=== PATIENT | female | born 1925 | race Hispanic/Latino ===

== ENCOUNTER 2017-02-06 15:43 | Observation (INO) | payer MEDICARE ==
[2017-02-06 15:43] VITALS: BMI 30.3
--- NOTE | 2017-02-06 16:37 | ED PDOC ---
- ECG O2 Sat by Pulse Oximetry: 93 Medical Decision Making Medical Decision Making: Patient signed out to Dr. Swann. Disposition - Disposition Forms: [email or web address] (Setswana)
--- NOTE | 2017-02-06 16:40 | ED PDOC ---
Upper Extremity Pain/Injury Time Seen by Provider: 02/06/17 16:17 Chief Complaint (Nursing): Upper Extremity Problem/Injury Chief Complaint (Provider): Right arm injury History Per: Patient History/Exam Limitations: no limitations Onset/Duration Of Symptoms: Hrs Current Symptoms Are (Timing): Still Present Additional Complaint(s): Patient is an 89 year old female with a past medical history of dementia and stroke who was brought to the emergency department by her family for right arm pain and a head injury status post fall from losing her balance at 2:15 pm today , presenting with a small abrasion to her forehead. Reports taking Plavix. Denies vomiting, focal weakness, or sensory deficits. PCP: Dr. Manuel Martins Past Medical History Reviewed: Historical Data, Nursing Documentation, Vital Signs Vital Signs: Last Vital Signs Temp 98.0 F 02/06/17 15:46 Pulse 73 02/06/17 15:46 Resp 20 02/06/17 15:46 BP 159/70 H 02/06/17 15:46 Pulse Ox 93 L 02/06/17 16:37 - Medical History PMH: Anxiety, COPD, Dementia, Fractures (pelvic fracture 2008), HTN, Hypercholesterolemia, TIA Denies: Chronic Kidney Disease - Surgical History Surgical History: Hernia Repair - Family History Family History: States: Unknown Family Hx - Living Arrangements Living Arrangements: With Family - Home Medications Home Medications: Ambulatory Orders Medication Instructions Recorded Amlodipine Besylate 10 mg PO HS 07/31/14 Clopidogrel [Plavix] 75 mg PO DAILY 07/31/14 Enalapril Maleate 10 mg PO Q12 07/31/14 Fluticasone/Salmeterol 250/50 2 puff IH Q12 07/31/14 [Advair Diskus 250/50] Quetiapine Fumarate [Seroquel] 25 mg PO BID 07/31/14 Rivastigmine 9.5 mg/24 hr [Exelon 9.4 mg TD HS 07/31/14 9.5 mg/24 hr Patch] Tiotropium [place] Inhaler 1 puff INH DAILY 07/31/14 [Spiriva Inhalation Handihaler Device] Pantoprazole [Protonix EC Tab] 20 mg PO DAILY #0 ect 08/16/14 cloNIDine [Catapres] 0.1 mg PO BID #0 tab 08/17/14 Mesalamine [Lialda] 1.2 mg PO 06/16/15 - Allergies Allergies/Adverse Reactions: Allergies Allergy/AdvReac Type Severity Reaction Status Date / Time No Known Allergies Allergy Verified 02/06/17 15:45 Review of Systems ROS Statement: Except As Marked, All Systems Reviewed And Found Negative Gastrointestinal: Negative for: Vomiting Musculoskeletal: Positive for: Arm Pain (right) Skin: Positive for: Other (small abrasion on forehead) Neurological: Negative for: Weakness (focal weakness or sensory deficits) Physical Exam - Reviewed Nursing Documentation Reviewed: Yes Vital Signs Reviewed: Yes - Physical Exam Appears: Positive for: Well, Non-toxic, No Acute Distress Head Exam: Positive for: NORMOCEPHALIC. Negative for: ATRAUMATIC Skin: Positive for: Normal Color, Warm, Dry Eye Exam: Positive for: Normal appearance, EOMI Neck: Positive for: Normal, Supple Cardiovascular/Chest: Positive for: Regular Rate, Rhythm, Chest Non Tender. Negative for: Murmur Respiratory: Positive for: Normal Breath Sounds. Negative for: Accessory Muscle Use, Respiratory Distress Gastrointestinal/Abdominal: Positive for: Soft. Negative for: Tenderness Extremity: Positive for: Normal ROM, Tenderness (humoral tenderness and mild elbow tenderness), Deformity (humoral), Swelling (+2 pitting edema bilateral lower extremities) Neurologic/Psych: Positive for: Alert, Oriented (x2), Other (symmetric strength on both upper extremities). Negative for: Motor/Sensory Deficits Comments: Small abrasion to central forehead - Laboratory Results Result Diagrams: 02/06/17 16:38 02/06/17 16:38 - ECG O2 Sat by Pulse Oximetry: 93 (RA) Pulse Ox Interpretation: Normal Medical Decision Making Medical Decision Making: Time: 16:23 Initial Impression: Traumatic injury status post fall Initial Plan: CT Scan Cervical Spine w/o contrast EKG Labs Toradol 15 mg IM Morphine 2 mg IV X-Ray Right Elbow X-Ray Right Forearm X-Ray Right Humerus X-Ray Pelvis X-Ray Right Shoulder Reevaluation Scribe Attestation: Documented by Veronica Mora, acting as a scribe for Patti Swann MD. Provider Scribe Attestation: All medical record entries made by the Scribe were at my direction and personally dictated by me. I have reviewed the chart and agree that the record accurately reflects my personal performance of the history, physical exam, medical decision making, and the department course for this patient. I have also personally directed, reviewed, and agree with the discharge instructions and disposition. Disposition - Disposition Forms: [employer] (Slovak)
[2017-02-06 16:42] LABS: BASO # 0.1 K/uL (0.0-0.2); EOS # 0.1 K/uL (0.0-0.7); EOS % 0.5 % (0.0-4.0); HEMOGLOBIN 11.3 g/dL (12.0-16.0); LYMPH # 1.7 K/uL (1.0-4.3); MEAN CORPUSCULAR HEMOGLOBIN 29.1 pg (27.0-31.0); MEAN CORPUSCULAR HGB CONC 33.4 g/dL (33.0-37.0); MEAN PLATELET VOLUME 7.1 fl (7.2-11.7); MONO # 0.6 K/uL (0.0-0.8); NEUT # 9.6 K/uL (1.8-7.0); NEUT % 79.5 % (50.0-75.0); RBC 3.9 Mil/uL (3.80-5.20); RED CELL DISTRIBUTION WIDTH 14.4 % (11.5-14.5); WHITE BLOOD COUNT 12.1 K/uL (4.8-10.8)
--- NOTE | 2017-02-06 16:45 | ED PDOC ---
- ECG O2 Sat by Pulse Oximetry: 93 Medical Decision Making Medical Decision Makin:44 Patient is signed out from Dr. Gary to me. Disposition - Disposition Forms: [employer] (Ukrainian)
[2017-02-06 16:51] LABS: BLOOD UREA NITROGEN 13 mg/dl (7-17); CALCIUM 9.3 mg/dL (8.4-10.2); GFR AFRICAN-AMERICAN > 60; GFR NON-AFRICAN AMERICAN > 60
--- NOTE | 2017-02-06 17:02 | ED PDOC ---
- Laboratory Results Result Diagrams: 02/06/17 16:38 02/06/17 16:38 - ECG O2 Sat by Pulse Oximetry: 93 (RA) Pulse Ox Interpretation: Normal Medical Decision Making Medical Decision Makin:50 Patient signed out to me from Dr. Ranjana Gary. Pending X-rays and C-spine CT scan. Pain medication initiated with Toradol. 17:30 C-spine CT scan pending. The following X-rays were reviewed and findings noted: Right forearm: no acute findings Right elbow: distal humerus fracture Right humerus: distal humerus fracture Right shoulder: no acute findings Pelvis: no acute findings 19:[address] scan reviewed and findings noted: LIMITATIONS: Moderate streak/motion artifact. BRAIN: Stable appearance of multiple areas of encephalomalacia in the right parietal and posterior temporal lobes, most likely secondary to a chronic infarct. Focal areas of low density are seen in the left basal ganglia, most compatible with old/chronic lacunar infarcts. Stable tiny calcification in the left parietal lobe. Diffuse, marked, age-related cortical atrophy and ventriculomegaly. No definite acute abnormality identified, allowing for motion artifact. No definite acute hemorrhage seen within the brain. No acute extra-axial fluid collections visualized. No evidence of significant mass effect within the brain. VENTRICLES: See above. BONES/JOINTS: No acute fractures or other acute bony abnormality noted. SOFT TISSUES: Soft tissue swelling in the right frontal scalp. SINUSES: Visualized paranasal sinuses appear clear. MASTOID AIR CELLS: Mastoid air cells appear clear. IMPRESSION: - No definite acute intracranial injury or fractures. Exam is limited by motion artifact, however. - Areas of encephalomalacia in the right cerebral hemisphere, most likely related to an old/chronic infarct. - See above for remaining findings. 19:[address] C-[address] scan reviewed and findings noted: LIMITATIONS: Mild streak/motion artifact. VERTEBRAE: Vertebrae appear demineralized. No acute cervical spine fractures visualized. No significant vertebral subluxation seen on the sagittal reformatted images. Normal alignment of the facet joints. DISCS/SPINAL CANAL/NEURAL FORAMINA: Marked, multilevel degenerative disc disease. Marked, multilevel facet joint degenerative changes. Degenerative changes at the atlantoaxial joint. SOFT TISSUES: No acute abnormality of the visualized soft tissues is seen. LUNG APICES: Emphysematous changes in the lung apices. No pneumothorax is seen. IMPRESSION: - No acute cervical spine fractures identified. - See above for remaining findings. Discussed with Dr Portillo who recommends posterior splint and admit for OR. Scribe Attestation: Documented by Veronica Mora, acting as a scribe for Patti wSann MD. Provider Scribe Attestation: All medical record entries made by the Scribe were at my direction and personally dictated by me. I have reviewed the chart and agree that the record accurately reflects my personal performance of the history, physical exam, medical decision making, and the department course for this patient. I have also personally directed, reviewed, and agree with the discharge instructions and disposition. Disposition Discussed With DrLorna: Marjan Milton Doctor Will See Patient In The: ED Counseled Patient/Family Regarding: Studies Performed, Diagnosis - Clinical Impression Clinical Impression: Head injury, Fracture of humerus, right, closed - POA Present On Arrival: None - Disposition Disposition: Admitted as In-Patient Disposition Time: 19:30 Condition: FAIR Forms: [employer] (Spanish)
[2017-02-06 18:35] LABS: INR 1.1 (0.9-1.2); PARTIAL THROMBOPLASTIN TIME 32.6 Seconds (25.6-37.1); PROTHROMBIN TIME 10.9 Seconds (9.8-13.1)
--- NOTE | 2017-02-06 19:22 | CT ---
EXAM: CT Head Without Intravenous Contrast EXAM DATE/TIME: 02/06/2017 4:23 PM CLINICAL HISTORY: 89 years old, female; Injury or trauma; Fall; Initial encounter; Fracture, traumatic; Additional info: R/O ich TECHNIQUE: Axial computed tomography images of the head/brain without intravenous contrast. All CT scans at this facility use one or more dose reduction techniques, viz.: automated exposure control; ma/kV adjustment per patient size (including targeted exams where dose is matched to indication; i.e. head); or iterative reconstruction technique. Coronal and sagittal reformatted images were created and reviewed. COMPARISON: Prior head CT of 12/04/2014 3:16:58 PM FINDINGS: LIMITATIONS: Moderate streak/motion artifact. BRAIN: Stable appearance of multiple areas of encephalomalacia in the right parietal and posterior temporal lobes, most likely secondary to a chronic infarct. Focal areas of low density are seen in the left basal ganglia, most compatible with old/chronic lacunar infarcts. Stable tiny calcification in the left parietal lobe. Diffuse, marked, age-related cortical atrophy and ventriculomegaly. No definite acute abnormality identified, allowing for motion artifact. No definite acute hemorrhage seen within the brain. No acute extra-axial fluid collections visualized. No evidence of significant mass effect within the brain. VENTRICLES: See above. BONES/JOINTS: No acute fractures or other acute bony abnormality noted. SOFT TISSUES: Soft tissue swelling in the right frontal scalp. SINUSES: Visualized paranasal sinuses appear clear. MASTOID AIR CELLS: Mastoid air cells appear clear. IMPRESSION: - No definite acute intracranial injury or fractures. Exam is limited by motion artifact, however. - Areas of encephalomalacia in the right cerebral hemisphere, most likely related to an old/chronic infarct. - See above for remaining findings.
--- NOTE | 2017-02-06 19:32 | CT ---
EXAM: CT Cervical Spine Without Intravenous Contrast EXAM DATE/TIME: 02/06/2017 4:23 PM CLINICAL HISTORY: 89 years old, female; Pain; Neck pain; Additional info: Trauma R/O FX TECHNIQUE: Axial computed tomography images of the cervical spine without intravenous contrast. All CT scans at this facility use one or more dose reduction techniques, viz.: automated exposure control; ma/kV adjustment per patient size (including targeted exams where dose is matched to indication; i.e. head); or iterative reconstruction technique. Coronal and sagittal reformatted images were created and reviewed. COMPARISON: No relevant prior studies available. FINDINGS: LIMITATIONS: Mild streak/motion artifact. VERTEBRAE: Vertebrae appear demineralized. No acute cervical spine fractures visualized. No significant vertebral subluxation seen on the sagittal reformatted images. Normal alignment of the facet joints. DISCS/SPINAL CANAL/NEURAL FORAMINA: Marked, multilevel degenerative disc disease. Marked, multilevel facet joint degenerative changes. Degenerative changes at the atlantoaxial joint. SOFT TISSUES: No acute abnormality of the visualized soft tissues is seen. LUNG APICES: Emphysematous changes in the lung apices. No pneumothorax is seen. IMPRESSION: - No acute cervical spine fractures identified. - See above for remaining findings.
--- NOTE | 2017-02-06 20:18 | CP.PCM.HP ---
History of Present Illness - History of Present Illness History of Present Illness: CC: Fall, R humerus fracture (History per family as patient has dementia and cannot provide) HPI: This is an 89 y/o female with MHx significant for dementia, HTN, COPD, UC and prior CVA (on Plavix) who is brought in after a fall at home. Per family, she was coming into the house with the daughter. Daughter turned around to get her her walker, and in the meantime, patient had a mechanical fall in the entryway. She did hit her head. There was no LOC. patient got up, was mentating normally. Did c/o arm pain on R. Patient was brought to the hospital soon after. Currently patient only c/o R arm pain. ROS: patient unable to cooperate with ROS MHx: HTN, COPD, Dementia, UC and past CVA SHx: None Allergies: None Medications: As per med rec Family Hx: Patient unable to provide Social Hx: Lives with family, no EtOH; prior history of tobacco Surrogate Dec Mkr: Daughter; accompanying patient Present on Admission - Present on Admission Any Indicators Present on Admission: No Past Patient History - Past Medical History & Family History Past Medical History?: Yes - Past Social History Smoking Status: Former Smoker - CARDIAC Hx Hypercholesterolemia: Yes Hx Hypertension: Yes - PULMONARY Hx Chronic Obstructive Pulmonary Disease (COPD): Yes - NEUROLOGICAL Hx Dementia: Yes Hx Transient Ischemic Attacks (TIA): Yes - HEENT Hx Macular Degeneration: Yes (last eye doctor visit 6 years ago) - RENAL Hx Chronic Kidney Disease: No - ENDOCRINE/METABOLIC Hx Endocrine Disorders: No - HEMATOLOGICAL/ONCOLOGICAL Hx Blood Disorders: No - INTEGUMENTARY Hx Dermatological Problems: No - MUSCULOSKELETAL/RHEUMATOLOGICAL Hx Fractures: Yes (pelvic fracture 2008) - GASTROINTESTINAL Hx Colitis: Yes - GENITOURINARY/GYNECOLOGICAL Hx Genitourinary Disorders: No - PSYCHIATRIC Hx Anxiety: Yes Hx Substance Use: No - SURGICAL HISTORY Hx Surgeries: Yes Other/Comment: Hernia repair 50 years ago - ANESTHESIA Hx Anesthesia: Yes Hx Anesthesia Reactions: No Hx Malignant Hyperthermia: No Meds Allergies/Adverse Reactions: Allergies Allergy/AdvReac Type Severity Reaction Status Date / Time No Known Allergies Allergy Verified 02/06/17 15:45 Physical Exam - Constitutional Appears: Confused - Head Exam Head Exam: ATRAUMATIC, NORMOCEPHALIC Additional comments: Some abrasions noted on forehead - Eye Exam Eye Exam: EOMI, PERRL - ENT Exam ENT Exam: Mucous Membranes Moist - Neck Exam Neck exam: Positive for: Full Rom - Respiratory Exam Respiratory Exam: Clear to Auscultation Bilateral, NORMAL BREATHING PATTERN - Cardiovascular Exam Cardiovascular Exam: REGULAR RHYTHM, +S1, +S2 - GI/Abdominal Exam GI & Abdominal Exam: Hyperactive Bowel Sounds, Soft - Extremities Exam Additional comments: RUE in sling; L knee with abrasions - Neurological Exam Neurological exam: Alert Additional comments: awake but confused - Skin Skin Exam: Dry, Warm Results - Vital Signs Recent Vital Signs: Last Vital Signs Temp 98.0 F 02/06/17 15:46 Pulse 73 02/06/17 15:46 Resp 20 02/06/17 15:46 BP 159/70 H 02/06/17 15:46 Pulse Ox 93 L 02/06/17 20:01 - Labs Result Diagrams: 02/06/17 16:38 02/06/17 16:38 Labs: Laboratory Results - last 24 hr 02/06/17 02/06/17 02/06/17 16:38 16:38 16:38 WBC 12.1 H D RBC 3.90 Hgb 11.3 L Hct 33.9 L MCV 87.0 MCH 29.1 MCHC 33.4 RDW 14.4 Plt Count 279 MPV 7.1 L Neut % (Auto) 79.5 H Lymph % (Auto) 14.0 L [place] % (Auto) 5.0 Eos % (Auto) 0.5 Baso % (Auto) 1.0 Neut # 9.6 H Lymph # 1.7 [place] # 0.6 Eos # 0.1 Baso # 0.1 PT 10.9 INR 1.1 APTT 32.6 Sodium 122 L Potassium 4.7 Chloride 90 L Carbon Dioxide 21 L Anion Gap 16 BUN 13 Creatinine 0.7 Est GFR ( Amer) > 60 Est GFR (Non-Af Amer) > 60 Random Glucose 127 H Calcium 9.3 - EKG Data EKG comments: pending - Imaging and Cardiology CT scan - chest Status: Pending (R shoulder shows hum fx) Assessment & Plan (1) Fracture of humerus, right, closed Assessment and Plan: 89 y/o female presenting with fall/head injury in setting of Plavix and R humerus fx. 1) Fall/head injury -- CT shows no bleed -Hold Plavix -Monitor closely 2) R humerus fx 2/2 fall -Pain mgmt as per scale -Ortho consulted -CXR, EKG pre-op in case patient needs OR -NPO after MN in case OR -Cardiology (Lakshmi) consulted for clearance 3) HTN -- stable, cont home medications 4) DVT PPx -- SCDs only for now Status: Acute (2) Head injury Status: Acute (3) DVT prophylaxis Status: Acute (4) COPD (chronic obstructive pulmonary disease) Status: Chronic Priority: Medium (5) Hypertension Status: Chronic Priority: Medium
[2017-02-06] MEDS: Fluticasone-Salmeterol 250-50mcg Diskus IH SCH (23:55)
[2017-02-07] MEDS ORDERED: Sodium Chloride 0.9% 1,000 ML IV SCH (00:15)
[2017-02-07] MEDS: Oxycodone/Acetaminophen 5/325 mg Tab PO PRN ×2 (00:37→16:02)
[2017-02-07 08:02] LABS: HEMOGLOBIN 10.9 g/dL (12.0-16.0); MEAN CELL VOLUME 87.6 fl (81.0-99.0); MEAN CORPUSCULAR HEMOGLOBIN 29.3 pg (27.0-31.0); MEAN CORPUSCULAR HGB CONC 33.5 g/dL (33.0-37.0); RBC 3.72 Mil/uL (3.80-5.20); RED CELL DISTRIBUTION WIDTH 14.3 % (11.5-14.5); WHITE BLOOD COUNT 11.2 K/uL (4.8-10.8)
[2017-02-07 08:18] LABS: BLOOD UREA NITROGEN 12 mg/dl (7-17); CALCIUM 9.1 mg/dL (8.4-10.2); GFR AFRICAN-AMERICAN > 60; GFR NON-AFRICAN AMERICAN > 60
[2017-02-07 08:41] VITALS: RESP 20
[2017-02-07] MEDS ORDERED: Pantoprazole 20 mg EC Tab PO SCH (09:00)
[2017-02-07] MEDS ORDERED: Tiotropium 18 mcg Cap For Inhalation INH SCH (09:00)
--- NOTE | 2017-02-07 09:06 | CP.PCM.DIS ---
Provider - Provider Date of Admission: 02/06/17 19:49 Attending physician: Manuel Estrada MD Time Spent in preparation of Discharge (in minutes): 30 Hospital Course - Lab Results Lab Results: Most Recent Lab Values WBC 11.2 K/uL (4.8-10.8) H 02/07/17 05:30 RBC 3.72 Mil/uL (3.80-5.20) L 02/07/17 05:30 Hgb 10.9 g/dL (12.0-16.0) L 02/07/17 05:30 Hct 32.6 % (34.0-47.0) L 02/07/17 05:30 MCV 87.6 fl (81.0-99.0) 02/07/17 05:30 MCH 29.3 pg (27.0-31.0) 02/07/17 05:30 MCHC 33.5 g/dL (33.0-37.0) 02/07/17 05:30 RDW 14.3 % (11.5-14.5) 02/07/17 05:30 Plt Count 284 K/uL (130-400) 02/07/17 05:30 MPV 7.1 fl (7.2-11.7) L 02/06/17 16:38 Neut % (Auto) 79.5 % (50.0-75.0) H 02/06/17 16:38 Lymph % (Auto) 14.0 % (20.0-40.0) L 02/06/17 16:38 [place] % (Auto) 5.0 % (0.0-10.0) 02/06/17 16:38 Eos % (Auto) 0.5 % (0.0-4.0) 02/06/17 16:38 Baso % (Auto) 1.0 % (0.0-2.0) 02/06/17 16:38 Neut # 9.6 K/uL (1.8-7.0) H 02/06/17 16:38 Lymph # 1.7 K/uL (1.0-4.3) 02/06/17 16:38 [place] # 0.6 K/uL (0.0-0.8) 02/06/17 16:38 Eos # 0.1 K/uL (0.0-0.7) 02/06/17 16:38 Baso # 0.1 K/uL (0.0-0.2) 02/06/17 16:38 PT 10.9 Seconds (9.8-13.1) 02/06/17 16:38 INR 1.1 (0.9-1.2) 02/06/17 16:38 APTT 32.6 Seconds (25.6-37.1) 02/06/17 16:38 Sodium 124 mmol/l (132-148) L 02/07/17 05:30 Potassium 4.6 MMOL/L (3.6-5.0) 02/07/17 05:30 Chloride 91 mmol/L (98-107) L 02/07/17 05:30 Carbon Dioxide 23 mmol/L (22-30) 02/07/17 05:30 Anion Gap 15 (10-20) 02/07/17 05:30 BUN 12 mg/dl (7-17) 02/07/17 05:30 Creatinine 0.6 mg/dL (0.7-1.2) L 02/07/17 05:30 Est GFR ( Amer) > 60 02/07/17 05:30 Est GFR (Non-Af Amer) > 60 02/07/17 05:30 Random Glucose 110 mg/dL (65-105) H 02/07/17 05:30 Calcium 9.1 mg/dL (8.4-10.2) 02/07/17 05:30 - Hospital Course Hospital Course: HPI: This is an 89 y/o female with MHx significant for dementia, HTN, COPD, UC and prior CVA (on Plavix) who is brought in after a fall at home. Per family, she was coming into the house with the daughter. Daughter turned around to get her her walker, and in the meantime, patient had a mechanical fall in the entryway. She did hit her head. There was no LOC. patient got up, was mentating normally. Did c/o arm pain on R. Patient was brought to the hospital soon after. Currently patient only c/o R arm pain. DISCUSSED WITH DR. PORTILLO THIS MORNING, OCTOBER DISCHARGE PATIENT HOME WITH OUTPATIENT FOLLOW UP. STABLE FOR DISCHARGE HOME WITH ALSO FOLLOW UP PCP. DISCUSSED WITH DAUGHTER, PRIMARY SUPERVISOR DOCK. Assessment & Plan (1) Fracture of humerus, right, closed Assessment and Plan: 89 y/o female presenting with fall/head injury in setting of Plavix and R humerus fx. 1) Fall/head injury -- CT shows no bleed -Hold Plavix -Monitor closely 2) R humerus fx 2/2 fall -Pain mgmt as per scale -CT scan - chest (R shoulder shows hum fx) -Ortho consulted Lindsey - DISCUSSED WITH DR. PORTILLO, MAY DISCHARGE PATIENT HOME WITH OUTPATIENT FOLLOW UP IN THE OFFICE. -CXR, EKG pre-op in case patient needs OR -NPO after MN in case OR -Cardiology (Lakshmi) - DISCUSSED WITH DR. ESTRADA 3) HTN -- stable, cont home medications 4) DVT PPx -- SCDs only for now Status: Acute (2) Head injury Status: Acute (3) DVT prophylaxis Status: Acute (4) COPD (chronic obstructive pulmonary disease) Status: Chronic Priority: Medium (5) Hypertension Status: Chronic Priority: Medium Discharge Exam - Head Exam Head Exam: ATRAUMATIC, NORMOCEPHALIC Additional comments: GEN: WDWN, ALERT, COOPERATIVE, BASELINE CONFUSION HEENT: NCAT, PERRL, EOMI HEART: +S1+S2, RRR NO MRG LUNG: CTAB, NO WRR ABD: SOFT BSX4 NT ND NO HSM NO MASS EXT: WARM, WELL PERFUSED. LIMITED ROM R SHOULDER IN SLING NEURO: NV INTACT ALL 4 EXTREMIITES, WARM, WELL PERFUSED SKIN: WARM DRY PSYCH: NORMAL MOOD NORMAL AFFECT Discharge Plan - Discharge Medications Prescriptions: amLODIPine [Norvasc] 10 mg PO HS #30 tab cloNIDine [Catapres] 0.1 mg PO BID #60 tab Clopidogrel [Plavix] 75 mg PO DAILY #30 tab Enalapril Maleate [Vasotec] 20 mg PO BID #60 tab Fluticasone/Salmeterol 250/50 [Advair Diskus 250/50] 2 puff IH Q12 #14 puff Mesalamine [Lialda] 1.2 mg PO BID #60 tab Mesalamine [Lialda] 1.2 mg PO BID #60 tab Pantoprazole [Protonix EC Tab] 20 mg PO DAILY #30 ect QUEtiapine [Seroquel] 25 mg PO DAILY #30 tab Quetiapine Fumarate [Seroquel] 50 mg PO HS #30 tab Rivastigmine 9.5 mg/24 hr [Exelon 9.5 mg/24 hr Patch] 9.4 mg TD HS #30 tdm Tiotropium [place] Inhaler [Spiriva Inhalation Handihaler Device] 1 puff INH DAILY #1 inh - Follow Up Plan Condition: FAIR Disposition: HOME/ ROUTINE Additional Instructions: FOLLOW UP WITH ORTHO DR. PORTILLO FOLLOW UP WITH PCP RETURN TO ER IF CONDITION WORSENS Referrals: Nestor Portillo MD [Staff Provider] -
[2017-02-07] MEDS: Fluticasone-Salmeterol 250-50mcg Diskus IH SCH ×2 (09:23→09:45)
--- NOTE | 2017-02-07 10:13 | CARD ---
APPROVED REPORT EKG Measurement Heart [id number] <Conclusion> Sinus rhythm with 1st degree AV block Left axis deviation Right bundle branch block Abnormal ECG
[2017-02-07 12:00] LABS: URINE BACTERIA OCC (<OCC); URINE BILIRUBIN NEGATIVE (NEGATIVE); URINE BLOOD SMALL (NEGATIVE); URINE CLARITY TURBID (Clear); URINE COLOR YELLOW (YELLOW); URINE GLUCOSE (UA) NEG (Normal); URINE LEUKOCYTE ESTERASE LARGE Leu/uL (Negative); URINE NITRATE NEGATIVE (NEGATIVE); URINE PROTEIN 30 mg/dL (NEGATIVE); URINE UROBILINOGEN 0.2-1.0 mg/dL (0.2-1.0); WBC CLUMPS MOD /hpf
[2017-02-07 12:01] LABS: SQUAMOUS EPITHIAL 5 /hpf (0-5)
[2017-02-07 12:07] VITALS: BP 138/72; PULSE 72; TEMP 98.2
[2017-02-07] MEDS ORDERED: Tmp-Smz 800 mg-160 mg DS Tab PO SCH (14:03)
[2017-02-07 16:39] VITALS: O2SAT 90
--- NOTE | 2017-02-07 16:41 | RAD ---
PROCEDURE: Radiographs of the right humerus. HISTORY: fall trauma COMPARISON: Comparison made with concurrent radiographs right elbow. FINDINGS: BONES: There is a displaced diagonal/ oblique fracture distal 1/3 of the right humerus. Degenerative changes of the right elbow with heterotopic bone changes. . . Questionable fracture of the radial head versus. Consider followup CT scan of the right elbow for further evaluation SOFT TISSUES: Probable soft tissue swelling surrounding the fracture site OTHER FINDINGS: None. IMPRESSION: Diagonal/oblique displaced fracture distal 1/3 of the right humerus. . Questionable fracture of the right humeral head. Degenerative osteoarthritis right elbow. . Consider followup CT scan of the right elbow. Note that this report was placed in PA review folder for followup
--- NOTE | 2017-02-07 16:44 | RAD ---
PROCEDURE: Pelvis dated 02/06/2017 HISTORY: Status post fall with trauma COMPARISON: Comparison made with radiographs of the right hip 06/01/[address] scan of the abdomen and pelvis dated 12/04/2014 which image the pelvis and both hips in 3 planes. FINDINGS: The current study is quite limited due to large pannus which partially obscures fine soft tissue and bone detail. No definitive evidence of acute displaced fracture nor dislocation. Both femoral heads are appropriately located within the respective acetabula. Degenerative osteoarthritis both hip joints. If symptoms persist or occult fracture suspected clinically recommend followup CT scan of the pelvis and both hips. Vascular calcifications are present. Impression: Limited study due to large body habitus. No definitive evidence of acute displaced fracture nor dislocation however if symptoms persist or occult fracture suspected clinically recommend followup CT scan of the pelvis and both hips. Degenerative osteoarthritis both hip joints. BONES: Pelvic Bones: Unremarkable. Hips: Grossly unremarkable. JOINTS: Sacroiliac Joints: Unremarkable. Pubic Symphysis: Unremarkable. OTHER FINDINGS: None. IMPRESSION: Unremarkable radiographs of the pelvis.
--- NOTE | 2017-02-07 16:47 | RAD ---
PROCEDURE: Radiographs of the Right Shoulder HISTORY: fall trauma COMPARISON: Correlation made with concurrent radiographs of the right humerus. . FINDINGS: BONES: Diagonal fracture distal 1/3 of the right humerus is less well seen compared to dedicated radiographs of the right humerus. Please refer that study and corresponding report for additional details JOINTS: Mild degenerative changes of the right acromioclavicular and glenohumeral joints. SOFT TISSUES: Probable soft tissue swelling surrounding the fracture site OTHER FINDINGS: None. IMPRESSION: Diagonal/oblique fracture distal 1/3 of the right humerus.
--- NOTE | 2017-02-07 16:50 | RAD ---
PROCEDURE: Right elbow dated 02/06/2017. HISTORY: Status post fall with trauma COMPARISON: No comparison made with concurrent radiographs of the right humerus and right forearm FINDINGS: BONES: Re- demonstrated is a displaced diagonal/oblique fracture traversing the distal right humerus. Questionable fracture of the radial head versus degenerative osteoarthritis. . Impression: The displaced diagonal/ oblique fracture traversing distal 1/3 right humerus. Degenerative changes of the right elbow. Fracture of the right radial head cannot be excluded. Consider followup CT scan for further evaluation. Note that this report was placed in PA review folder for followup.
--- NOTE | 2017-02-07 17:08 | RAD ---
PROCEDURE: Radiographs of the Right Forearm HISTORY: fall trauma COMPARISON: Comparison made with concurrent radiographs of the right humerus and right elbow. TECHNIQUE: Frontal and lateral views obtained. FINDINGS: BONES: The current study re- demonstrates displaced diagonal fracture traversing distal 1/3 right humerus. JOINT SPACES: Degenerative changes right elbow with heterotopic bone changes. The possibility of a fracture of the head of the right radius not excluded. Consider followup CT scan of the elbow could be performed if further evaluation is required based on clinical correlation. OTHER FINDINGS: None. IMPRESSION: Displaced diagonal/oblique fracture distal 1/3 of the right humerus. Degenerative changes right elbow. Fracture right radial head not excluded. Followup CT scan could be performed if further evaluation is required. Note that this report was placed in PA review folder followup
--- NOTE | 2017-02-07 18:07 | RAD ---
PROCEDURE: CHEST RADIOGRAPH, 1 VIEW HISTORY: Pre-op COMPARISON: Comparison made with chest radiograph 12/04/2014. FINDINGS: LUNGS: Patchy bibasilar opacities may represent areas of atelectasis likely due to poor inspiration. Developing lower lobe infiltrates could be excluded followup radiographs. The interstitial markings are also increased and coarsened which could be due to poor inspiration however underlying sequela of reactive/inflammatory airway disease or possibility of mild chronic compensated pulmonary edema/CHF not excluded. PLEURA: No evidence of pneumothorax. Biapical pleural thickening left greater than right CARDIOVASCULAR: Heart is enlarged. Aorta is ectatic and uncoiled. Calcification of the aortic knob. OSSEOUS STRUCTURES: Multilevel degenerative spondylosis of the thoracic spine. High-riding left humeral head possibly due to chronic rotator cuff injury. Degenerative changes both shoulder girdles VISUALIZED UPPER ABDOMEN: Normal. OTHER FINDINGS: None. IMPRESSION: Patchy bibasilar opacities may represent areas of atelectasis likely due to poor inspiration. Developing lower lobe infiltrates could be excluded followup radiographs. The interstitial markings are also increased and coarsened which could be due to poor inspiration however underlying sequela of reactive/inflammatory airway disease or possibility of mild chronic compensated pulmonary edema/CHF not excluded.
== END 2017-02-07 16:30 | disposition home or self-care (01) ==
LOC: H.ER 15:43 → H.ERHOLD 19:49 → INTOOBSV 19:49 → H.TEL 23:53
PROVIDERS: ADMIT Internal Medicine Cardiovascular Disease; ATTEND Internal Medicine Cardiovascular Disease
DX: S42.401A Unspecified fracture of lower end of right humerus, initial encounter for closed fracture (principal); W18.30XA Fall on same level, unspecified, initial encounter; Y93.9 Activity, unspecified; Y92.008 Other place in unspecified non-institutional (private) residence as the place of occurrence of the external cause; S00.81XA Abrasion of other part of head, initial encounter; I10 Essential (primary) hypertension; E78.00 Pure hypercholesterolemia, unspecified; Z86.73 Personal history of transient ischemic attack (TIA), and cerebral infarction without residual deficits; F03.90 Unspecified dementia, unspecified severity, without behavioral disturbance, psychotic disturbance, mood disturbance, and anxiety; J44.9 Chronic obstructive pulmonary disease, unspecified; F41.9 Anxiety disorder, unspecified
CPT/HCPCS: 36415; 70450; 71010; 72125; 72170; 73030; 73060; 73080; 73090; 80048; 81003; 85025; 85027; 85610; 85730; 93005; 96372; 96374; 99285; G0378; J1885; J2270; J7040

== ENCOUNTER 2017-02-11 15:30 | Inpatient (IN) | payer MEDICARE ==
[2017-02-11 15:31] VITALS: BMI 30.3
[2017-02-11 17:06] LABS: BASO # 0.1 K/uL (0.0-0.2); EOS % 0.5 % (0.0-4.0); LYMPH # 1.5 K/uL (1.0-4.3); MEAN CELL VOLUME 87.2 fl (81.0-99.0); MEAN CORPUSCULAR HEMOGLOBIN 29.3 pg (27.0-31.0); MEAN CORPUSCULAR HGB CONC 33.6 g/dL (33.0-37.0); MEAN PLATELET VOLUME 7.4 fl (7.2-11.7); MONO # 0.4 K/uL (0.0-0.8); MONO % 4.9 % (0.0-10.0); NEUT # 6.2 K/uL (1.8-7.0); NEUT % 75.6 % (50.0-75.0); RED CELL DISTRIBUTION WIDTH 14.2 % (11.5-14.5); WHITE BLOOD COUNT 8.1 K/uL (4.8-10.8)
[2017-02-11 17:17] LABS: CALCIUM 8.3 mg/dL (8.4-10.2); POTASSIUM 4.9 MMOL/L (3.6-5.0)
--- NOTE | 2017-02-11 17:20 | RAD ---
PROCEDURE: CHEST RADIOGRAPH, 1 VIEW HISTORY: Cough. Congestion. COMPARISON: Comparison chest dated 02/06/2027 FINDINGS: LUNGS: Poor inspiration with low lung volumes, crowded bronchovascular markings and mild bibasilar atelectasis ; underlying infiltrates not excluded. Mild biapical pleural thickening PLEURA: As above. No pneumothorax or pleural fluid seen. CARDIOVASCULAR: Heart appears enlarged. Aorta is ectatic and uncoiled with calcification of the aortic knob. OSSEOUS STRUCTURES: No significant abnormalities. VISUALIZED UPPER ABDOMEN: Degenerative osteoarthritis both shoulder girdles. OTHER FINDINGS: None. IMPRESSION: Poor inspiration with low lung volumes, crowded bronchovascular markings and mild bibasilar atelectasis ; underlying infiltrates not excluded.
[2017-02-11] MEDS: Sodium Chloride 0.9% 1,000 ML IV SCH (17:26)
[2017-02-11 17:29] LABS: TROPONIN I 0.021 ng/mL (0.00-0.120)
--- NOTE | 2017-02-11 19:06 | ED PDOC ---
HPI: General Adult Time Seen by Provider: 02/11/17 15:45 Chief Complaint (Nursing): Weakness/Neurological Deficit Chief Complaint (Provider): Weakness History Per: Family History/Exam Limitations: no limitations Onset/Duration Of Symptoms: Days (x 5) Current Symptoms Are (Timing): Still Present Additional Complaint(s): Lauren is an 89 y/o female who presents to the ED for complaints of generalized weakness for the past 4 days. Admitted last week for right arm fracture and discharged 4 days ago. Splint was placed on right arm and patient was seen by Orthopedist Dr. Portillo and given follow up appointment. Since discharge, she is unable to get up and walk due to weakness. Family reports decreased appetite. Denies fever. Patient has history of dementia and is a poor historian. PMD: Dr. Martins Past Medical History Reviewed: Historical Data, Nursing Documentation, Vital Signs Vital Signs: Last Vital Signs Temp 97.6 F 02/12/17 12:00 Pulse 92 H 02/12/17 12:00 Resp 20 02/12/17 12:00 BP 164/78 H 02/12/17 12:00 Pulse Ox 93 L 02/12/17 12:00 - Medical History PMH: Anxiety, Arthritis, CAD, COPD, Dementia, Fractures (pelvic fracture 2008), HTN, Hypercholesterolemia, TIA Denies: HIV, Chronic Kidney Disease - Surgical History Surgical History: Hernia Repair - Family History Family History: States: Unknown Family Hx - Social History Ex-Smoker (has not smoked in the last 12 months): Yes Alcohol: None Drugs: Denies - Home Medications Home Medications: Ambulatory Orders Medication Instructions Recorded Clopidogrel [Plavix] 75 mg PO DAILY #30 tab 02/07/17 Enalapril Maleate [Vasotec] 20 mg PO BID #60 tab 02/07/17 Mesalamine [Lialda] 1.2 mg PO BID #60 tab 02/07/17 Pantoprazole [Protonix EC Tab] 20 mg PO DAILY #30 ect 02/07/17 QUEtiapine [Seroquel] 25 mg PO DAILY #30 tab 02/07/17 Quetiapine Fumarate [Seroquel] 50 mg PO HS #30 tab 02/07/17 Rivastigmine 9.5 mg/24 hr [Exelon 9.4 mg TD HS #30 tdm 02/07/17 9.5 mg/24 hr Patch] Sulfamethoxazole/Trimethoprim 1 tab PO Q12 #14 tab 02/07/17 [Bactrim DS Tab] Tiotropium [place] Inhaler 1 puff INH DAILY #1 inh 02/07/17 [Spiriva Inhalation Handihaler Device] amLODIPine [Norvasc] 10 mg PO HS #30 tab 02/07/17 cloNIDine [Catapres] 0.1 mg PO BID #60 tab 02/07/17 Clonazepam [Clonazepam] 0.25 mg PO BID@1730,2230 02/11/17 Dextromethorphan HBr/Quinidine 1 cap PO DAILY 02/11/17 [Nuedexta 20-10 mg Capsule] Fluticasone/Salmeterol 250/50 1 puff IH DAILY 02/11/17 [Advair Diskus 250/50] - Allergies Allergies/Adverse Reactions: Allergies Allergy/AdvReac Type Severity Reaction Status Date / Time No Known Allergies Allergy Verified 02/06/17 15:45 Review of Systems ROS Statement: Except As Marked, All Systems Reviewed And Found Negative Constitutional: Positive for: Weakness (Generalized). Negative for: Fever Gastrointestinal: Positive for: Other (Decreased appetite) Physical Exam - Reviewed Nursing Documentation Reviewed: Yes Vital Signs Reviewed: Yes - Physical Exam Appears: Positive for: Non-toxic, No Acute Distress (Frail, ill appearing) Head Exam: Positive for: ATRAUMATIC, NORMAL INSPECTION, NORMOCEPHALIC Skin: Positive for: Normal Color, Warm, Dry Eye Exam: Positive for: EOMI, Normal appearance, PERRL ENT: Positive for: Other (Dry mucus membranes) Neck: Positive for: Normal, Painless ROM, Supple Cardiovascular/Chest: Positive for: Regular Rate, Rhythm. Negative for: Murmur Respiratory: Positive for: Normal Breath Sounds. Negative for: Respiratory Distress Pulses-Radial (L): 2+ Pulses-Radial (R): 2+ Gastrointestinal/Abdominal: Positive for: Normal Exam, Soft. Negative for: Tenderness Back: Positive for: Normal Inspection. Negative for: Vertebral Tenderness Extremity: Positive for: Normal ROM, Deformity (splint placed on right arm). Negative for: Calf Tenderness, Swelling Neurologic/Psych: Positive for: Alert, Oriented (x2, at baseline) - Laboratory Results Result Diagrams: 02/12/17 06:02/12/17 06:05 - ECG O2 Sat by Pulse Oximetry: 93 (NC) Pulse Ox Interpretation: Normal - Radiology X-Ray: Interpreted by Me, Viewed By Me X-Ray Interpretation: No Acute Disease - Progress Condition: Re-examined Medical Decision Making Medical Decision Making: Initial Impression: UTI, dehydration, hyponatremia Time: 16:39 Initial Plan: --BMP --Troponin I --CBC --Urine dipstick --CXR Time: 17:18 Chest X-Ray: FINDINGS: LUNGS: Poor inspiration with low lung volumes, crowded bronchovascular markings and mild bibasilar atelectasis ; underlying infiltrates not excluded. Mild biapical pleural thickening PLEURA: As above. No pneumothorax or pleural fluid seen. CARDIOVASCULAR: Heart appears enlarged. Aorta is ectatic and uncoiled with calcification of the aortic knob. OSSEOUS STRUCTURES: No significant abnormalities. VISUALIZED UPPER ABDOMEN: Degenerative osteoarthritis both shoulder girdles. OTHER FINDINGS: None. IMPRESSION: Poor inspiration with low lung volumes, crowded bronchovascular markings and mild bibasilar atelectasis ; underlying infiltrates not excluded. Time: 17:24 --Blood type and screen --NS IV 1000 ml at 100 mls/hr --Rocephin 1 gm IV --Urine and blood cultures pending Time: 17:35 --Reviewed labs, patient has severe hyponatremia. --Discussed case with Dr. Willis, who is covering [facility]. Family agreeable with plan. --Patient is to be admitted to Inpatient Telemetry for severe hyponatremia and ARF under the care of Dr. Alex Willis. Time: 19:19 --Percocet 1 tab PO Scribe Attestation: Documented by Criss Reynolds, acting as a scribe for Patti Swann MD Provider Scribe Attestation: All medical record entries made by the Scribe were at my direction and personally dictated by me. I have reviewed the chart and agree that the record accurately reflects my personal performance of the history, physical exam, medical decision making, and the department course for this patient. I have also personally directed, reviewed, and agree with the discharge instructions and disposition. Disposition - Clinical Impression Clinical Impression: Dehydration with hyponatremia, Hyponatremia, Weakness generalized, UTI ( urinary tract infection) - Patient ED Disposition Is Patient to be Admitted: Yes Discussed With : Alex Willis Doctor Will See Patient In The: Hospital Counseled Patient/Family Regarding: Studies Performed, Diagnosis - Disposition Disposition Time: 17:00 Condition: FAIR - Pt Status Changed To: Hospital Disposition Of: Inpatient - Admit Certification Admit to Inpatient:: After my assessment, the patient will require hospitalization for at least two midnights. This is because of the severity of symptoms shown, intensity of services needed, and/or the medical risk in this patient being treated as an outpatient. - POA Present On Arrival: Falls Or Trauma
[2017-02-11] MEDS ORDERED: cefTRIAXone (Rocephin) 1 gm Inj ONE (19:13)
[2017-02-11] MEDS ORDERED: Oxycodone/Acetaminophen 5/325 mg Tab PO ONE (19:19)
[2017-02-12] MEDS ORDERED: Oxycodone/Acetaminophen 5/325 mg Tab PO ONE (04:50)
[2017-02-12] MEDS: Sodium Chloride 0.9% 1,000 ML IV SCH ×2 (05:14→13:40)
[2017-02-12] MEDS ORDERED: Enoxaparin 30 mg Syringe SC SCH (09:00)
[2017-02-12] MEDS ORDERED: MESALAMINE PO SCH (09:00)
[2017-02-12] MEDS ORDERED: Lactulose 10 gm/15 ml Syrup PO PRN (09:08)
[2017-02-12 09:32] LABS: HEMATOCRIT 29.7 % (34.0-47.0); MEAN CELL VOLUME 87.5 fl (81.0-99.0); MEAN CORPUSCULAR HEMOGLOBIN 29.4 pg (27.0-31.0); MEAN CORPUSCULAR HGB CONC 33.6 g/dL (33.0-37.0); RED CELL DISTRIBUTION WIDTH 14.6 % (11.5-14.5)
[2017-02-12 09:49] LABS: CALCIUM 8.9 mg/dL (8.4-10.2); POTASSIUM 4.4 MMOL/L (3.6-5.0)
[2017-02-12] MEDS: Pantoprazole 20 mg EC Tab PO SCH (09:52)
[2017-02-12] MEDS ORDERED: Albuterol-Ipratrop 3 mg / 0.5 (3 ml) UD INH PRN (09:55)
[2017-02-12] MEDS: Tiotropium 18 mcg Cap For Inhalation INH SCH (10:49)
--- NOTE | 2017-02-12 11:17 | CP.PCM.HP ---
History of Present Illness - History of Present Illness History of Present Illness: 89 y/o female admitted with Dehydration , lethargy, hyponatremia complaints of generalized weakness for the past 4 days. Admitted last week for right arm fracture and discharged 4 days ago. Splint was placed on right arm and patient was seen by Orthopedist Dr. Portillo and given follow up appointment. Since discharge, she is unable to get up and walk due to weakness. Family reports decreased appetite. Denies fever. Patient has history of dementia and is a poor historian. PMH: Anxiety, Arthritis, CAD, COPD, Dementia, Fractures (pelvic fracture 2008), HTN, Hypercholesterolemia, TIA Labs: Na; 108, today 115 BUN: 36; today 23 Creatinine; 2.3 -- 1.2 Present on Admission - Present on Admission Any Indicators Present on Admission: No Past Patient History - Infectious Disease Hx of Infectious Diseases: None - Past Medical History & Family History Past Medical History?: Yes - Past Social History Smoking Status: Former Smoker - CARDIAC Hx Hypercholesterolemia: Yes Hx Hypertension: Yes - PULMONARY Hx Chronic Obstructive Pulmonary Disease (COPD): Yes - NEUROLOGICAL Hx Dementia: Yes Hx Transient Ischemic Attacks (TIA): Yes - HEENT Hx HEENT Problems: Yes Hx Glaucoma: Yes - RENAL Hx Chronic Kidney Disease: No - ENDOCRINE/METABOLIC Hx Endocrine Disorders: No - HEMATOLOGICAL/ONCOLOGICAL Hx Human Immunodeficiency Virus (HIV): No - INTEGUMENTARY Hx Dermatological Problems: No - MUSCULOSKELETAL/RHEUMATOLOGICAL Hx Arthritis: Yes Hx Falls: Yes Hx Fractures: Yes (pelvic fracture 2008) - GASTROINTESTINAL Hx Colitis: Yes - GENITOURINARY/GYNECOLOGICAL Hx Genitourinary Disorders: No - PSYCHIATRIC Hx Anxiety: Yes Hx Substance Use: No - SURGICAL HISTORY Hx Surgeries: Yes Other/Comment: Hernia repair 50 years ago - ANESTHESIA Hx Anesthesia: Yes Hx Anesthesia Reactions: No Hx Malignant Hyperthermia: No Meds Allergies/Adverse Reactions: Allergies Allergy/AdvReac Type Severity Reaction Status Date / Time No Known Allergies Allergy Verified 02/06/17 15:45 Physical Exam - Constitutional Appears: Confused - Eye Exam Eye Exam: Normal appearance Pupil Exam: NORMAL ACCOMODATION - ENT Exam ENT Exam: Mucous Membranes Dry, Normal Exam - Respiratory Exam Respiratory Exam: NORMAL BREATHING PATTERN - Cardiovascular Exam Cardiovascular Exam: REGULAR RHYTHM - GI/Abdominal Exam GI & Abdominal Exam: Diminished Bowel Sounds, Distended, Soft Results - Vital Signs Recent Vital Signs: Last Vital Signs Temp 97.6 F 02/12/17 04:57 Pulse 81 02/12/17 10:55 Resp 20 02/12/17 04:57 BP 149/68 02/12/17 10:55 Pulse Ox 92 L 02/12/17 04:57 - Labs Result Diagrams: 02/12/17 06:05 02/12/17 06:05 Labs: Laboratory Results - last 24 hr 02/11/17 02/12/17 02/12/17 17:40 06:05 06:05 WBC 12.0 H RBC 3.39 L Hgb 10.0 L Hct 29.7 L MCV 87.5 MCH 29.4 MCHC 33.6 RDW 14.6 H Plt Count 369 D Sodium 115 L* Potassium 4.4 Chloride 88 L Carbon Dioxide 17 L Anion Gap 14 BUN 23 H Creatinine 1.2 Est GFR ( Amer) 51 Est GFR (Non-Af Amer) 42 Random Glucose 99 Serum Osmolality Calcium 8.9 Blood Type A POSITIVE Antibody Screen Negative BBK History Checked Patient has bt 02/12/17 06:05 WBC RBC Hgb Hct MCV MCH MCHC RDW Plt Count Sodium Potassium Chloride Carbon Dioxide Anion Gap BUN Creatinine Est GFR ( Amer) Est GFR (Non-Af Amer) Random Glucose Serum Osmolality 248 L Calcium Blood Type Antibody Screen BBK History Checked Assessment & Plan (1) Dehydration with hyponatremia Assessment and Plan: Pt is on saline drip nephrology consult called Status: Acute (2) Fracture of humerus, right, closed Status: Acute (3) COPD (chronic obstructive pulmonary disease) Status: Chronic Priority: Medium (4) Dementia Status: Chronic Priority: Medium (5) Hypertension Status: Chronic Priority: Medium
--- NOTE | 2017-02-12 11:42 | CP.PCM.CON ---
History of Present Illness - History of Present Illness History of Present Illness: This patient who is a 31 years of age admitted because of weakness she came to the emergency room after history of fall about a week ago she came to the emergency room apparently and she has what appeared to be perhaps fracture of the right arm . Patient came to the emergency room with sodium very low 108 I believe and she was started on sodium chloride and I was called to see her today for abnormal kidney function and also height natremia Past medical history Anxiety, Arthritis, CAD, COPD, Dementia, Fractures (pelvic fracture 2008), HTN, Hypercholesterolemia, TIA Review of Systems - Constitutional Constitutional: As Per HPI. absent: Chills - EENT Nose/Mouth/Throat: As Per HPI - Cardiovascular Cardiovascular: absent: Chest Pain, Dyspnea, Leg Edema, Pedal Edema - Respiratory Respiratory: absent: Hemoptysis - Gastrointestinal Gastrointestinal: Abdominal Pain, Bloating. absent: Coffee Ground Emesis, Vomiting - Musculoskeletal Musculoskeletal: Muscle Weakness - Neurological Neurological: As Per HPI - Psychiatric Psychiatric: As Per HPI Past Patient History - Infectious Disease Hx of Infectious Diseases: None - Past Medical History & Family History Past Medical History?: Yes - Past Social History Smoking Status: Former Smoker - CARDIAC Hx Hypercholesterolemia: Yes Hx Hypertension: Yes - PULMONARY Hx Chronic Obstructive Pulmonary Disease (COPD): Yes - NEUROLOGICAL Hx Dementia: Yes Hx Transient Ischemic Attacks (TIA): Yes - HEENT Hx HEENT Problems: Yes Hx Glaucoma: Yes - RENAL Hx Chronic Kidney Disease: No - ENDOCRINE/METABOLIC Hx Endocrine Disorders: No - HEMATOLOGICAL/ONCOLOGICAL Hx Human Immunodeficiency Virus (HIV): No - INTEGUMENTARY Hx Dermatological Problems: No - MUSCULOSKELETAL/RHEUMATOLOGICAL Hx Arthritis: Yes Hx Falls: Yes Hx Fractures: Yes (pelvic fracture 2008) - GASTROINTESTINAL Hx Colitis: Yes - GENITOURINARY/GYNECOLOGICAL Hx Genitourinary Disorders: No - PSYCHIATRIC Hx Anxiety: Yes Hx Substance Use: No - SURGICAL HISTORY Hx Surgeries: Yes Other/Comment: Hernia repair 50 years ago - ANESTHESIA Hx Anesthesia: Yes Hx Anesthesia Reactions: No Hx Malignant Hyperthermia: No Meds Allergies/Adverse Reactions: Allergies Allergy/AdvReac Type Severity Reaction Status Date / Time No Known Allergies Allergy Verified 02/06/17 15:45 - Medications Medications: Current Medications Albuterol/Ipratropium (Duoneb 3 Mg/0.5 Mg (3 Ml) Ud) 3 ml INH RQ4 PRN PRN Reason: Shortness of Breath Amlodipine Besylate (Norvasc) 10 mg PO HS [facility] Clonazepam (Klonopin) 0.25 mg PO BID@1730,2230 [facility] Clonidine HCl (Catapres) 0.1 mg PO BID [facility] Last Admin: 02/12/17 10:55 Dose: 0.1 mg Clopidogrel Bisulfate (Plavix) 75 mg PO DAILY [facility] Docusate Sodium (Colace) 100 mg PO BID [facility] Enalapril Maleate (Vasotec) 20 mg PO BID [facility] Last Admin: 02/12/17 09:54 Dose: 20 mg Enoxaparin Sodium (Lovenox) 30 mg SC DAILY [facility] PRN Reason: Protocol Home Med (Mesalamine [Lialda]) 1.2 mg PO BID [facility] Sodium Chloride (Sodium Chloride 0.9%) 1,000 mls @ 100 mls/hr IV .Q10H [facility] Stop: 02/12/17 17:24 Last Admin: 02/12/17 05:14 Dose: 100 mls/hr Lactulose (Enulose) 10 gm PO DAILY PRN PRN Reason: Constipation Pantoprazole Sodium (Protonix Ec Tab) 20 mg PO DAILY [facility] Last Admin: 02/12/17 09:52 Dose: 20 mg Quetiapine Fumarate (Seroquel) 25 mg PO DAILY [facility] Last Admin: 02/12/17 09:51 Dose: 25 mg Quetiapine Fumarate (Seroquel) 50 mg PO HS [facility] Rivastigmine (Exelon 9.5 Mg/24 Hr Patch) 1 patch TD HS [facility] Tiotropium [place] (Spiriva) 18 mcg INH DAILY [facility] Last Admin: 02/12/17 10:49 Dose: 18 mcg Physical Exam - Constitutional Appears: No Acute Distress - ENT Exam ENT Exam: Mucous Membranes Dry - Respiratory Exam Respiratory Exam: NORMAL BREATHING PATTERN. absent: Chest Wall Tenderness - Cardiovascular Exam Cardiovascular Exam: absent: JVD, Rubs - GI/Abdominal Exam GI & Abdominal Exam: Guarding, Normal Bowel Sounds - Extremities Exam Extremities exam: Negative for: calf tenderness - Back Exam Back exam: absent: CVA tenderness (L), CVA tenderness (R) Results - Vital Signs Recent Vital Signs: Last Vital Signs Temp 97.6 F 02/12/17 04:57 Pulse 81 02/12/17 10:55 Resp 20 02/12/17 04:57 BP 149/68 02/12/17 10:55 Pulse Ox 92 L 02/12/17 04:57 - Labs Result Diagrams: 02/12/17 06:05 02/12/17 06:05 Labs: Laboratory Results - last 24 hr 02/11/17 02/12/17 02/12/17 17:40 06:05 06:05 WBC 12.0 H RBC 3.39 L Hgb 10.0 L Hct 29.7 L MCV 87.5 MCH 29.4 MCHC 33.6 RDW 14.6 H Plt Count 369 D Sodium 115 L* Potassium 4.4 Chloride 88 L Carbon Dioxide 17 L Anion Gap 14 BUN 23 H Creatinine 1.2 Est GFR ( Amer) 51 Est GFR (Non-Af Amer) 42 Random Glucose 99 Serum Osmolality Calcium 8.9 Blood Type A POSITIVE Antibody Screen Negative BBK History Checked Patient has bt 02/12/17 06:05 WBC RBC Hgb Hct MCV MCH MCHC RDW Plt Count Sodium Potassium Chloride Carbon Dioxide Anion Gap BUN Creatinine Est GFR ( Amer) Est GFR (Non-Af Amer) Random Glucose Serum Osmolality 248 L Calcium Blood Type Antibody Screen BBK History Checked Assessment & Plan (1) Hyponatremia Assessment and Plan: Patient admitted with severe hyponatremia: No 8 patient has been receiving normal saline and repeat sodium is going up this morning to 115 very good responded And the daughter was at the bedside and the patient appeared to be token and to continue the normal saline since she appeared to be dehydrated as well and continue to monitor sodium and electrolyte And to monitor sodium in order to rise approximately 12 mEq per 24 hours Also serum chloride was low and that anticipated to be corrected with a normal saline. Etiology of hyponatremia could have been acute hyponatremia from acute SIADH related to the fall? Status: Acute
[2017-02-12] MEDS ORDERED: Simethicone 80 mg Chewtab PO PRN (13:13)
[2017-02-12] MEDS ORDERED: Sodium Chloride 3% for Inhalation 4 ML VIAL.NEB IH PRN (14:17)
--- NOTE | 2017-02-12 14:26 | RAD ---
HISTORY: r/o ileus COMPARISON: No prior. FINDINGS: BOWEL: Curvilinear air-filled loop of bowel in the upper abdomen likely represents distended air-filled stomach. Additionally, there also appear to be few scattered minimally distended air-filled loops of small bowel with air and stool seen throughout the large bowel. No evidence to suggest acute mechanical bowel obstruction BONES: Multilevel degenerative spondylosis of the lower thoracic and lumbar spine with moderate dextroscoliosis centered at the thoracolumbar junction. OTHER FINDINGS: None. IMPRESSION: Distended air-filled stomach. No evidence acute mechanical bowel obstruction.
[2017-02-12] MEDS: Albuterol-Ipratrop 3 mg / 0.5 (3 ml) UD INH SCH ×3 (15:47→23:40)
[2017-02-12] MEDS ORDERED: Simethicone 40 mg/0.6 ml Liquid (30 ml) PO PRN (16:30)
[2017-02-12] MEDS: MESALAMINE 1.2 GM PO SCH (17:22)
[2017-02-13] MEDS: Albuterol-Ipratrop 3 mg / 0.5 (3 ml) UD INH SCH ×6 (04:43→23:25)
[2017-02-13 07:51] LABS: HEMATOCRIT 27.2 % (34.0-47.0); MEAN CELL VOLUME 85.8 fl (81.0-99.0); MEAN CORPUSCULAR HEMOGLOBIN 30.7 pg (27.0-31.0); MEAN CORPUSCULAR HGB CONC 35.7 g/dL (33.0-37.0); RED CELL DISTRIBUTION WIDTH 14.7 % (11.5-14.5)
[2017-02-13 09:03] LABS: BLOOD UREA NITROGEN 13 mg/dl (7-17); CALCIUM 8.7 mg/dL (8.4-10.2); CARBON DIOXIDE 19 mmol/L (22-30); CHLORIDE 89 mmol/L (98-107); GFR AFRICAN-AMERICAN > 60; GLUCOSE,RANDOM 119 mg/dL (65-105)
[2017-02-13 09:10] LABS: SODIUM 118 mmol/l (132-148)
--- NOTE | 2017-02-13 09:56 | CP.PCM.PN ---
Subjective - Date & Time of Evaluation Date of Evaluation: 02/13/17 Time of Evaluation: 09:00 - Subjective Subjective: Pt's abdomen is still distended soft, non tender, hypoactive BS Abd Xray; air filled stomach no evidence of obstruction Dr Tom on consult has seen the pt in the past Na: 118 Objective - Vital Signs/Intake and Output Vital Signs (last 24 hours): Temp Pulse Resp BP Pulse Ox 98.4 F 97 H 18 161/74 H 95 02/13/17 08:00 02/13/17 08:00 02/13/17 08:00 02/13/17 08:00 02/13/17 08:00 - Medications Medications: Current Medications Acetaminophen (Tylenol 325mg Tab) 650 mg PO Q6 PRN PRN Reason: Pain, moderate (4-7) Last Admin: 02/12/17 23:41 Dose: 650 mg Albuterol/Ipratropium (Duoneb 3 Mg/0.5 Mg (3 Ml) Ud) 3 ml INH RQ4 [facility] Last Admin: 02/13/17 07:26 Dose: 3 ml Amlodipine Besylate (Norvasc) 10 mg PO HS [facility] Last Admin: 02/12/17 22:08 Dose: 10 mg Clonazepam (Klonopin) 0.25 mg PO BID@1730,2230 [facility] Last Admin: 02/12/17 22:06 Dose: 0.25 mg Clonidine HCl (Catapres) 0.1 mg PO BID [facility] Last Admin: 02/12/17 17:21 Dose: 0.1 mg Clopidogrel Bisulfate (Plavix) 75 mg PO DAILY [facility] Last Admin: 02/12/17 14:09 Dose: Not Given Docusate Sodium (Colace) 100 mg PO BID [facility] Last Admin: 02/12/17 17:21 Dose: 100 mg Enalapril Maleate (Vasotec) 20 mg PO BID [facility] Last Admin: 02/12/17 17:24 Dose: 20 mg Enoxaparin Sodium (Lovenox) 30 mg SC DAILY [facility] PRN Reason: Protocol Last Admin: 02/12/17 14:01 Dose: Not Given Home Med (Patient's Own Medication) 2 unit PO DAILY [facility] Last Admin: 02/12/17 17:22 Dose: 2 unit Ceftriaxone Sodium 1 gm/ (Sodium Chloride) 100 mls @ 100 mls/hr IVPB DAILY [facility] Last Admin: 02/12/17 15:39 Dose: 100 mls/hr Lactulose (Enulose) 10 gm PO DAILY PRN PRN Reason: Constipation Last Admin: 02/12/17 13:42 Dose: 10 gm Pantoprazole Sodium (Protonix Ec Tab) 20 mg PO DAILY [facility] Last Admin: 02/12/17 09:52 Dose: 20 mg Quetiapine Fumarate (Seroquel) 25 mg PO DAILY [facility] Last Admin: 02/12/17 09:51 Dose: 25 mg Quetiapine Fumarate (Seroquel) 50 mg PO HS [facility] Last Admin: 02/12/17 22:10 Dose: 50 mg Rivastigmine (Exelon 9.5 Mg/24 Hr Patch) 1 patch TD [facility] Last Admin: 02/12/17 22:07 Dose: 1 patch Simethicone (Mylicon Liq) 40 mg PO QID PRN PRN Reason: Flatulence Last Admin: 02/12/17 17:22 Dose: 40 mg Tiotropium [place] (Spiriva) 18 mcg INH DAILY [facility] Last Admin: 02/12/17 10:49 Dose: 18 mcg - Labs Labs: 02/13/17 06:00 02/13/17 06:00 Assessment and Plan (1) Dehydration with hyponatremia Status: Acute (2) Fracture of humerus, right, closed Status: Acute (3) COPD (chronic obstructive pulmonary disease) Status: Chronic (4) Dementia Status: Chronic (5) Hypertension Status: Chronic
[2017-02-13 10:28] LABS: ALKALINE PHOSPHATASE 43 U/L (38-126); ALT/SGPT 29 U/L (9-52); AST/SGOT 42 U/L (14-36); BILIRUBIN,TOTAL 0.6 mg/dl (0.2-1.3); BLOOD UREA NITROGEN 13 mg/dl (7-17); CALCIUM 8.7 mg/dL (8.4-10.2); CARBON DIOXIDE 19 mmol/L (22-30); CHLORIDE 90 mmol/L (98-107); GFR AFRICAN-AMERICAN > 60; GLUCOSE,RANDOM 126 mg/dL (65-105); TOTAL PROTEIN 6.5 G/DL (6.3-8.2); URIC ACID 4.2 mg/Dl (2.2-7.5)
[2017-02-13 10:36] LABS: SODIUM 119 mmol/l (132-148)
--- NOTE | 2017-02-13 11:25 | CP.PCM.PN ---
Subjective - Date & Time of Evaluation Date of Evaluation: 02/13/17 Time of Evaluation: 11:22 - Subjective Subjective: seen and examined pt resting per daughter had been up for 36 hours and agitated yesterday Objective - Vital Signs/Intake and Output Vital Signs (last 24 hours): Temp Pulse Resp BP Pulse Ox 98.4 F 97 H 18 161/74 H 95 02/13/17 08:00 02/13/17 08:00 02/13/17 08:00 02/13/17 08:00 02/13/17 08:00 - Medications Medications: Current Medications Acetaminophen (Tylenol 325mg Tab) 650 mg PO Q6 PRN PRN Reason: Pain, moderate (4-7) Last Admin: 02/12/17 23:41 Dose: 650 mg Albuterol/Ipratropium (Duoneb 3 Mg/0.5 Mg (3 Ml) Ud) 3 ml INH RQ4 [facility] Last Admin: 02/13/17 11:11 Dose: 3 ml Amlodipine Besylate (Norvasc) 10 mg PO HS [facility] Last Admin: 02/12/17 22:08 Dose: 10 mg Clonazepam (Klonopin) 0.25 mg PO BID@1730,2230 [facility] Last Admin: 02/12/17 22:06 Dose: 0.25 mg Clonidine HCl (Catapres) 0.1 mg PO BID [facility] Last Admin: 02/13/17 09:00 Dose: Not Given Clopidogrel Bisulfate (Plavix) 75 mg PO DAILY [facility] Last Admin: 02/12/17 14:09 Dose: Not Given Docusate Sodium (Colace) 100 mg PO BID [facility] Last Admin: 02/12/17 17:21 Dose: 100 mg Enalapril Maleate (Vasotec) 20 mg PO BID [facility] Last Admin: 02/13/17 09:01 Dose: Not Given Enoxaparin Sodium (Lovenox) 30 mg SC DAILY [facility] PRN Reason: Protocol Last Admin: 02/12/17 14:01 Dose: Not Given Home Med (Patient's Own Medication) 2 unit PO DAILY [facility] Last Admin: 02/12/17 17:22 Dose: 2 unit Ceftriaxone Sodium 1 gm/ (Sodium Chloride) 100 mls @ 100 mls/hr IVPB DAILY [facility] Last Admin: 02/13/17 09:55 Dose: 100 mls/hr Lactulose (Enulose) 10 gm PO DAILY PRN PRN Reason: Constipation Last Admin: 02/12/17 13:42 Dose: 10 gm Pantoprazole Sodium (Protonix Ec Tab) 20 mg PO DAILY [facility] Last Admin: 02/12/17 09:52 Dose: 20 mg Quetiapine Fumarate (Seroquel) 25 mg PO DAILY [facility] Last Admin: 02/12/17 09:51 Dose: 25 mg Quetiapine Fumarate (Seroquel) 50 mg PO HS [facility] Last Admin: 02/12/17 22:10 Dose: 50 mg Rivastigmine (Exelon 9.5 Mg/24 Hr Patch) 1 patch TD HS [facility] Last Admin: 02/12/17 22:07 Dose: 1 patch Simethicone (Mylicon Liq) 40 mg PO QID PRN PRN Reason: Flatulence Last Admin: 02/12/17 17:22 Dose: 40 mg Tiotropium [place] (Spiriva) 18 mcg INH DAILY [facility] Last Admin: 02/12/17 10:49 Dose: 18 mcg - Labs Labs: 02/13/17 06:00 02/13/17 10:10 - Constitutional Appears: Non-toxic - Head Exam Head Exam: ATRAUMATIC - Eye Exam Eye Exam: Normal appearance - ENT Exam ENT Exam: Normal Exam - Neck Exam Neck Exam: Normal Inspection - Respiratory Exam Respiratory Exam: NORMAL BREATHING PATTERN - Cardiovascular Exam Cardiovascular Exam: +S2 - GI/Abdominal Exam GI & Abdominal Exam: Normal Bowel Sounds - Extremities Exam Additional comments: no edema - Neurological Exam Additional comments: sleeping - Psychiatric Exam Psychiatric exam: Flat Affect - Skin Skin Exam: Normal Color Assessment and Plan - Assessment and Plan (Free Text) Assessment: Hyponatremia/ MAUREEN / dementia/ Agitation/ plan: NA is improving slowy at a safe pace - on NS at this point - will recheck at 1 pm. 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 copd related meds? - both seroquel and rivastagmine have been associated - given chronicity of the hyponatremia would suggest talking to whoever prescribes them to see if they may be changed or discontinued will also check thyroid and am cortisol. ask rn to call me w/ 1 pm result muareen resolved w/ ivf
[2017-02-13] MEDS: Tiotropium 18 mcg Cap For Inhalation INH SCH (13:02)
[2017-02-13] MEDS: Pantoprazole 20 mg EC Tab PO SCH (13:03)
[2017-02-13] MEDS: MESALAMINE 1.2 GM PO SCH (13:07)
[2017-02-13 13:27] LABS: BLOOD UREA NITROGEN 12 mg/dl (7-17); CALCIUM 8.8 mg/dL (8.4-10.2); CARBON DIOXIDE 17 mmol/L (22-30); CHLORIDE 91 mmol/L (98-107); GFR AFRICAN-AMERICAN > 60; GLUCOSE,RANDOM 131 mg/dL (65-105); POTASSIUM 4.2 MMOL/L (3.6-5.0)
[2017-02-13 13:34] LABS: SODIUM 119 mmol/l (132-148)
--- NOTE | 2017-02-13 15:08 | RAD ---
HISTORY: Abdominal distension COMPARISON: No prior. FINDINGS: There is mild pulmonary venous congestion. The lungs are well inflated. There is question of a small left pleural effusion. The heart is normal in size. Atherosclerotic aortic arch calcifications are present. BOWEL: There is gaseous distension of the stomach. There are gas-filled bowel loops in the abdomen. BONES: There is diffuse bone demineralization and severe levoscoliosis in the lumbar spine. OTHER FINDINGS: None. IMPRESSION: Gaseous distension of the stomach. Nonobstructive bowel-gas pattern. Suspect small left pleural effusion.
--- NOTE | 2017-02-14 02:32 | CON ---
DATE: REFERRING PHYSICIAN: Not known at this time. HISTORY OF PRESENT ILLNESS: This is an 89-year-old woman who is known to Dr. Tom, my partner, who is off today with a known history of ulcerative colitis who was admitted 3 days ago after having broken arm a week or so ago. She had been discharged. She went home for couple of days, came back on . She was lethargic, found to be hyponatremic. She has a baseline history of dementia. She is referred now for GI evaluation as she has had some constipation issues and some abdominal distention. According to daughter who is at the bedside, the patient has been eating and not been having any nausea, vomiting or any constipation up until she came in the second time this past . She is not complaining of any abdominal pain. There has been no blood per rectum or lose stools. She is maintained at home on the [place] and she had not seen Dr. Tom since some time. ALLERGIES: SHE HAS NO KNOWN DRUG ALLERGIES. MEDICATIONS: Here in the hospital were reviewed. PAST MEDICAL HISTORY, SURGICAL HISTORY, FAMILY HISTORY AND SOCIAL HISTORY: All discussed with the daughter at the bedside. PHYSICAL EXAMINATION: GENERAL: She is a well-developed, well-nourished, overweight elderly woman who is arousable, but confused. VITAL SIGNS: Stable. She is afebrile. ABDOMEN: Soft and distended, but according to the daughter this is her baseline. There does not appear to be any tenderness, although she did have some groaning when I did press her abdomen. According to the daughter, when she had a bowel movement, did not have any expressed pain per se. LABORATORY DATA: The most recent ones, her CBC is remarkable for a hemoglobin of 9.7, which is stable for this patient. Her SMA-7, her most recent one shows her sodium is up to 119, it had been as low as 108 two days ago. Her others electrolytes are unremarkable. Her LFTs were within normal limits. She did have a flat plate done yesterday, 02/12/2017, which showed distended stomach; however, the bowel loops did not appear distended. IMPRESSION AND PLAN: An 89-year-old woman with multiple medical problems, on multiple medications and who is hyponatremic, is referred for abdominal distention, which is all probably due to a combination of all things already mentioned including the medications, the fact that she is so sedentary, her recent fall, perhaps use of pain medication secondary to that, all the medications that she is on and the hyponatremia which is probably the biggest factor at this point in time. I started her on lactulose 30 mL p.o. daily set up on a p.r.n. basis, continue with the Colace. I have increased her Protonix to 40 mg daily as it should be. I ordered a repeat x-ray for tomorrow morning and we will follow along with you. The patient does not appear to be acutely ill at this point in time. I did start her back on clear liquids as well as she had been made n.p.o. since she had a little bit of vomiting earlier today. We will follow with you. Luis Pal MD
[2017-02-14] MEDS: Albuterol-Ipratrop 3 mg / 0.5 (3 ml) UD INH SCH ×5 (05:16→19:29)
[2017-02-14 07:19] LABS: BLOOD UREA NITROGEN 13 mg/dl (7-17); CALCIUM 8.8 mg/dL (8.4-10.2); CARBON DIOXIDE 20 mmol/L (22-30); CHLORIDE 93 mmol/L (98-107); GFR AFRICAN-AMERICAN > 60; GLUCOSE,RANDOM 102 mg/dL (65-105); POTASSIUM 4.2 MMOL/L (3.6-5.0); SODIUM 121 mmol/l (132-148)
[2017-02-14 07:42] LABS: THYROID STIMULATING HORMONE 1.04 mIU/ML (0.46-4.68)
[2017-02-14] MEDS: Pantoprazole 40 mg EC Tab PO SCH (09:38)
[2017-02-14] MEDS: MESALAMINE 1.2 GM PO SCH ×2 (09:40→09:47)
[2017-02-14] MEDS: Tiotropium 18 mcg Cap For Inhalation INH SCH ×2 (09:42→13:41)
--- NOTE | 2017-02-14 09:47 | CP.PCM.PN ---
Subjective - Date & Time of Evaluation Date of Evaluation: 02/14/17 Time of Evaluation: 09:00 - Subjective Subjective: Pt seen resting in bed Dr Pal's note appreciated Na: 121 coming up BUN: 12 Creatinine: 0.7 Spoke with daughter and grand-daughter at length Objective - Vital Signs/Intake and Output Vital Signs (last 24 hours): Temp Pulse Resp BP Pulse Ox 99.7 F H 97 H 18 126/66 93 L 02/14/17 08:00 02/14/17 08:00 02/14/17 08:00 02/14/17 08:00 02/14/17 08:00 - Medications Medications: Current Medications Acetaminophen (Tylenol 325mg Tab) 650 mg PO Q6 PRN PRN Reason: Pain, moderate (4-7) Last Admin: 02/13/17 13:05 Dose: 650 mg Albuterol/Ipratropium (Duoneb 3 Mg/0.5 Mg (3 Ml) Ud) 3 ml INH RQ4 [facility] Last Admin: 02/14/17 07:24 Dose: 3 ml Amlodipine Besylate (Norvasc) 10 mg PO HS [facility] Last Admin: 02/13/17 23:14 Dose: 10 mg Clonazepam (Klonopin) 0.25 mg PO BID@1730,2230 [facility] Last Admin: 02/13/17 23:15 Dose: 0.25 mg Clonidine HCl (Catapres) 0.1 mg PO BID [facility] Last Admin: 02/13/17 18:18 Dose: Not Given Clopidogrel Bisulfate (Plavix) 75 mg PO DAILY [facility] Last Admin: 02/12/17 14:09 Dose: Not Given Docusate Sodium (Colace) 100 mg PO BID [facility] Last Admin: 02/14/17 09:42 Dose: 100 mg Enalapril Maleate (Vasotec) 20 mg PO BID [facility] Last Admin: 02/14/17 09:42 Dose: 20 mg Enoxaparin Sodium (Lovenox) 30 mg SC DAILY [facility] PRN Reason: Protocol Last Admin: 02/12/17 14:01 Dose: Not Given Home Med (Patient's Own Medication) 2 unit PO DAILY [facility] Last Admin: 02/14/17 09:40 Dose: 2 unit Ceftriaxone Sodium 1 gm/ (Sodium Chloride) 100 mls @ 100 mls/hr IVPB DAILY [facility] Last Admin: 02/14/17 09:37 Dose: 100 mls/hr Lactulose (Enulose) 20 gm PO DAILY [facility] Last Admin: 02/14/17 09:42 Dose: 20 gm Pantoprazole Sodium (Protonix Ec Tab) 40 mg PO DAILY [facility] Last Admin: 02/14/17 09:38 Dose: 40 mg Quetiapine Fumarate (Seroquel) 25 mg PO DAILY [facility] Last Admin: 02/14/17 09:42 Dose: 25 mg Quetiapine Fumarate (Seroquel) 50 mg PO HS [facility] Last Admin: 02/13/17 23:15 Dose: 50 mg Rivastigmine (Exelon 9.5 Mg/24 Hr Patch) 1 patch TD HS [facility] Last Admin: 02/13/17 23:06 Dose: 1 patch Simethicone (Mylicon Liq) 40 mg PO QID PRN PRN Reason: Flatulence Last Admin: 02/12/17 17:22 Dose: 40 mg Tiotropium [place] (Spiriva) 18 mcg INH DAILY [facility] Last Admin: 02/14/17 09:42 Dose: 18 mcg - Labs Labs: 02/13/17 06:00 02/14/17 05:30 Assessment and Plan (1) Dehydration with hyponatremia Status: Acute (2) Fracture of humerus, right, closed Status: Acute (3) COPD (chronic obstructive pulmonary disease) Status: Chronic (4) Dementia Status: Chronic (5) Hypertension Status: Chronic
[2017-02-15] MEDS: Albuterol-Ipratrop 3 mg / 0.5 (3 ml) UD INH SCH ×7 (01:00→23:27)
--- NOTE | 2017-02-15 09:33 | CP.PCM.PN ---
Subjective - Date & Time of Evaluation Date of Evaluation: 02/15/17 Time of Evaluation: 08:30 - Subjective Subjective: Confused, easily arousable Afebrile HR 78 BPM, reg BP 130/70 mm HG No signs of CHF Hyponatremia resolving Concenterated urine in presence of mypoosmolar state suggests SIADH (??) Await orthopedic eval Objective - Vital Signs/Intake and Output Vital Signs (last 24 hours): Temp Pulse Resp BP Pulse Ox 98.5 F 92 H 20 138/62 94 L 02/15/17 08:00 02/15/17 08:00 02/15/17 08:00 02/15/17 08:00 02/15/17 08:00 - Medications Medications: Current Medications Acetaminophen (Tylenol 325mg Tab) 650 mg PO Q6 PRN PRN Reason: Pain, moderate (4-7) Last Admin: 02/14/17 23:29 Dose: 650 mg Albuterol/Ipratropium (Duoneb 3 Mg/0.5 Mg (3 Ml) Ud) 3 ml INH RQ4 [facility] Last Admin: 02/15/17 07:24 Dose: 3 ml Amlodipine Besylate (Norvasc) 10 mg PO HS [facility] Last Admin: 02/14/17 22:15 Dose: 10 mg Clonazepam (Klonopin) 0.25 mg PO BID@1730,2230 [facility] Last Admin: 02/14/17 22:14 Dose: 0.25 mg Clonidine HCl (Catapres) 0.1 mg PO BID [facility] Last Admin: 02/14/17 17:37 Dose: Not Given Clopidogrel Bisulfate (Plavix) 75 mg PO DAILY [facility] Last Admin: 02/12/17 14:09 Dose: Not Given Docusate Sodium (Colace) 100 mg PO BID [facility] Last Admin: 02/14/17 17:37 Dose: Not Given Enalapril Maleate (Vasotec) 20 mg PO BID [facility] Last Admin: 02/14/17 17:37 Dose: Not Given Enoxaparin Sodium (Lovenox) 30 mg SC DAILY [facility] PRN Reason: Protocol Last Admin: 02/12/17 14:01 Dose: Not Given Home Med (Patient's Own Medication) 2 unit PO DAILY [facility] Last Admin: 02/14/17 09:47 Dose: Not Given Ceftriaxone Sodium 1 gm/ (Sodium Chloride) 100 mls @ 100 mls/hr IVPB DAILY [facility] Last Admin: 02/14/17 09:37 Dose: 100 mls/hr Lactulose (Enulose) 20 gm PO DAILY [facility] Last Admin: 02/14/17 13:40 Dose: Not Given Pantoprazole Sodium (Protonix Ec Tab) 40 mg PO DAILY [facility] Last Admin: 02/14/17 09:38 Dose: 40 mg Quetiapine Fumarate (Seroquel) 25 mg PO DAILY [facility] Last Admin: 02/14/17 09:42 Dose: 25 mg Quetiapine Fumarate (Seroquel) 50 mg PO HS [facility] Last Admin: 02/14/17 22:18 Dose: 50 mg Rivastigmine (Exelon 9.5 Mg/24 Hr Patch) 1 patch TD [facility] Last Admin: 02/14/17 22:14 Dose: 1 patch Simethicone (Mylicon Liq) 40 mg PO QID PRN PRN Reason: Flatulence Last Admin: 02/12/17 17:22 Dose: 40 mg Tiotropium [place] (Spiriva) 18 mcg INH DAILY [facility] Last Admin: 02/14/17 13:41 Dose: Not Given - Labs Labs: 02/13/17 06:00 02/14/17 05:30
[2017-02-15] MEDS: MESALAMINE 1.2 GM PO SCH (09:58)
[2017-02-15] MEDS: Pantoprazole 40 mg EC Tab PO SCH (09:58)
[2017-02-15] MEDS: Tiotropium 18 mcg Cap For Inhalation INH SCH (10:02)
[2017-02-15] MEDS ORDERED: Tolvaptan 15 MG TAB PO ONE (11:00)
--- NOTE | 2017-02-15 11:18 | CP.PCM.PN ---
Subjective - Date & Time of Evaluation Date of Evaluation: 02/15/17 Time of Evaluation: 11:14 - Subjective Subjective: Patient and bed No significant changes mentally Serum sodium rising fed a very slowly Serum sodium 121 Patient is candidate for tolvaptan Objective - Vital Signs/Intake and Output Vital Signs (last 24 hours): Temp Pulse Resp BP Pulse Ox 98.5 F 92 H 20 136/62 94 L 02/15/17 08:00 02/15/17 10:01 02/15/17 08:00 02/15/17 10:01 02/15/17 08:00 - Medications Medications: Current Medications Acetaminophen (Tylenol 325mg Tab) 650 mg PO Q6 PRN PRN Reason: Pain, moderate (4-7) Last Admin: 02/14/17 23:29 Dose: 650 mg Albuterol/Ipratropium (Duoneb 3 Mg/0.5 Mg (3 Ml) Ud) 3 ml INH RQ4 [facility] Last Admin: 02/15/17 07:24 Dose: 3 ml Amlodipine Besylate (Norvasc) 10 mg PO HS [facility] Last Admin: 02/14/17 22:15 Dose: 10 mg Clonazepam (Klonopin) 0.25 mg PO BID@1730,2230 [facility] Last Admin: 02/14/17 22:14 Dose: 0.25 mg Clonidine HCl (Catapres) 0.1 mg PO BID [facility] Last Admin: 02/15/17 10:01 Dose: 0.1 mg Clopidogrel Bisulfate (Plavix) 75 mg PO DAILY [facility] Last Admin: 02/12/17 14:09 Dose: Not Given Docusate Sodium (Colace) 100 mg PO BID [facility] Last Admin: 02/15/17 09:56 Dose: 100 mg Enalapril Maleate (Vasotec) 20 mg PO BID [facility] Last Admin: 02/15/17 09:58 Dose: 20 mg Enoxaparin Sodium (Lovenox) 30 mg SC DAILY [facility] PRN Reason: Protocol Last Admin: 02/12/17 14:01 Dose: Not Given Home Med (Patient's Own Medication) 1 unit PO BID [facility] Lactulose (Enulose) 20 gm PO DAILY [facility] Last Admin: 02/15/17 09:59 Dose: 20 gm Pantoprazole Sodium (Protonix Ec Tab) 40 mg PO DAILY [facility] Last Admin: 02/15/17 09:58 Dose: 40 mg Quetiapine Fumarate (Seroquel) 25 mg PO DAILY [facility] Last Admin: 02/15/17 09:58 Dose: Not Given Quetiapine Fumarate (Seroquel) 50 mg PO HS [facility] Last Admin: 02/14/17 22:18 Dose: 50 mg Rivastigmine (Exelon 9.5 Mg/24 Hr Patch) 1 patch TD HS [facility] Last Admin: 02/14/17 22:14 Dose: 1 patch Simethicone (Mylicon Liq) 40 mg PO QID PRN PRN Reason: Flatulence Last Admin: 02/12/17 17:22 Dose: 40 mg Tiotropium [place] (Spiriva) 18 mcg INH DAILY [facility] Last Admin: 02/15/17 10:02 Dose: 18 mcg - Labs Labs: 02/13/17 06:00 02/14/17 05:30 - Constitutional Appears: No Acute Distress - ENT Exam ENT Exam: Mucous Membranes Moist - Respiratory Exam Respiratory Exam: NORMAL BREATHING PATTERN. absent: Chest Wall Tenderness - GI/Abdominal Exam GI & Abdominal Exam: Normal Bowel Sounds - Extremities Exam Extremities Exam: absent: Calf Tenderness - Back Exam Back Exam: absent: CVA tenderness (L), CVA tenderness (R) - Neurological Exam Neurological Exam: Alert Assessment and Plan (1) Hyponatremia Assessment & Plan: Hyponatremia consistent with SIADH serum sodium has gone to 121 very slowly response to normal saline. Patient is candidate for tolvaptan We will give 15 mg Monitor serum sodium the goal is to raise serum sodium approximately 12 mEq for the next 24 hours therefore we will repeat serum sodium every 8 hours for the next 24 hours. I spoke to the daughter she is at the bedside. Status: Acute
[2017-02-15 12:14] LABS: CORTISOL AM 20.3 ug/dL (4.46-22.7)
--- NOTE | 2017-02-15 13:10 | PQF GENQUE ---
This form is a permanent part of the medical record 02/15/17 Dr. Willis, NOT MY PATIENT ER MD has documented the following information ( [facility] ) with no mention of this diagnosis in your documentation. Nephrology has also documented MAUREEN and SIADH. Please indicate in your next progress note and/or discharge summary your agreement with data processing systems consultant or provide clarification that this diagnosis is not a current condition. Admitted with general weakness and recent fall with fracture of the right arm. Patient with decreased appetite and admitted on 02/11/17. 4 days prior to admission BUN 12, creatinine 0.6 and GFR >60. On Admission BUN 36, Creatinine 2.3 and GFR 20 which have all gone back to normal after IV hydration. Clarification of your documentation is requested to better reflect the severity of illness and intensity of treatment of your patient. Indicators present [] Specify: [] [] Specify: [] [] Specify: [] [] Specify: [] Location in the medical record that reflects the above clinical findings: [] Treatment Provided: [] PHYSICIAN'S RESPONSE Based on your medical judgment of the clinical indicators outlined above please clarify the following: [] Practitioner response [] If unable to determine, please check the box, sign and date. Present On Admission (POA) Indicator: [] Present at the time of admission [] Not present at the time of admission [] Clinically Undetermined In responding to this query, please exercise your independent professional judgment. The fact that a question is asked does not imply that any particular answer is desired or expected. Thank you for your clarification on this documentation. If you have any questions please call:[phone] * Thank you, Sheila Hunt RN [facility]
[2017-02-15] MEDS: LIALDA PO SCH (17:55)
[2017-02-15 18:40] LABS: BLOOD UREA NITROGEN 23 mg/dl (7-17); CARBON DIOXIDE 20 mmol/L (22-30); CHLORIDE 94 mmol/L (98-107); GFR AFRICAN-AMERICAN > 60; GLUCOSE,RANDOM 177 mg/dL (65-105); POTASSIUM 4.5 MMOL/L (3.6-5.0); SODIUM 122 mmol/l (132-148)
[2017-02-16] MEDS: Albuterol-Ipratrop 3 mg / 0.5 (3 ml) UD INH SCH ×6 (04:20→23:33)
[2017-02-16 06:44] LABS: BLOOD UREA NITROGEN 21 mg/dl (7-17); CALCIUM 9.2 mg/dL (8.4-10.2); CARBON DIOXIDE 22 mmol/L (22-30); CHLORIDE 94 mmol/L (98-107); GFR AFRICAN-AMERICAN > 60; GLUCOSE,RANDOM 129 mg/dL (65-105); POTASSIUM 4.4 MMOL/L (3.6-5.0); SODIUM 125 mmol/l (132-148)
--- NOTE | 2017-02-16 08:29 | CP.PCM.PN ---
Subjective - Date & Time of Evaluation Date of Evaluation: 02/16/17 Time of Evaluation: 08:00 - Subjective Subjective: Sleepy, easily arousable Sat OOB briefly yesterday HR 70 BPM reg BP 136/70 mm Hg Serum Na+ 125 mEq/L from 121mEq?l yesterday Was given Tolvaptan yesterday (will probably need addl dose today) To be seen by orthopedic today Review of old records (going back to 2004) show multiple Na+ readings in 120's ?? Chr SIDH Discussed with Dr. Loza. Objective - Vital Signs/Intake and Output Vital Signs (last 24 hours): Temp Pulse Resp BP Pulse Ox 98.8 F 95 H 20 102/56 L 93 L 02/16/17 08:00 02/16/17 08:00 02/16/17 08:00 02/16/17 08:00 02/16/17 08:00 - Medications Medications: Current Medications Acetaminophen (Tylenol 325mg Tab) 650 mg PO Q6 PRN PRN Reason: Pain, moderate (4-7) Last Admin: 02/15/17 20:28 Dose: 650 mg Albuterol/Ipratropium (Duoneb 3 Mg/0.5 Mg (3 Ml) Ud) 3 ml INH RQ4 [facility] Last Admin: 02/16/17 07:20 Dose: 3 ml Amlodipine Besylate (Norvasc) 10 mg PO HS [facility] Last Admin: 02/15/17 22:11 Dose: 10 mg Clonazepam (Klonopin) 0.25 mg PO BID@1730,2230 [facility] Last Admin: 02/15/17 22:15 Dose: 0.25 mg Clonidine HCl (Catapres) 0.1 mg PO BID [facility] Last Admin: 02/15/17 17:54 Dose: 0.1 mg Clopidogrel Bisulfate (Plavix) 75 mg PO DAILY [facility] Last Admin: 02/12/17 14:09 Dose: Not Given Docusate Sodium (Colace) 100 mg PO BID [facility] Last Admin: 02/15/17 17:53 Dose: Not Given Enalapril Maleate (Vasotec) 20 mg PO BID [facility] Last Admin: 02/15/17 17:55 Dose: 20 mg Enoxaparin Sodium (Lovenox) 30 mg SC DAILY [facility] PRN Reason: Protocol Last Admin: 02/12/17 14:01 Dose: Not Given Home Med (Patient's Own Medication) 1 unit PO BID [facility] Last Admin: 02/15/17 17:55 Dose: 1 unit Lactulose (Enulose) 20 gm PO DAILY [facility] Last Admin: 02/15/17 09:59 Dose: 20 gm Pantoprazole Sodium (Protonix Ec Tab) 40 mg PO DAILY [facility] Last Admin: 02/15/17 09:58 Dose: 40 mg Quetiapine Fumarate (Seroquel) 25 mg PO DAILY [facility] Last Admin: 02/15/17 09:58 Dose: Not Given Quetiapine Fumarate (Seroquel) 50 mg PO [facility] Last Admin: 02/15/17 22:11 Dose: 50 mg Rivastigmine (Exelon 9.5 Mg/24 Hr Patch) 1 patch TD [facility] Last Admin: 02/15/17 22:23 Dose: 1 patch Simethicone (Mylicon Liq) 40 mg PO QID PRN PRN Reason: Flatulence Last Admin: 02/12/17 17:22 Dose: 40 mg Tiotropium [place] (Spiriva) 18 mcg INH DAILY [facility] Last Admin: 02/15/17 10:02 Dose: 18 mcg - Labs Labs: 02/13/17 06:00 02/16/17 05:45
[2017-02-16] MEDS: Pantoprazole 40 mg EC Tab PO SCH (09:25)
[2017-02-16] MEDS: Tiotropium 18 mcg Cap For Inhalation INH SCH (09:25)
[2017-02-16] MEDS: LIALDA PO SCH ×2 (09:25→17:09)
[2017-02-16] MEDS ORDERED: Tolvaptan 15 MG TAB PO STA (10:19)
--- NOTE | 2017-02-16 10:20 | CP.PCM.PN ---
Subjective - Date & Time of Evaluation Date of Evaluation: 02/16/17 Time of Evaluation: 10:20 - Subjective Subjective: no overnight events Objective - Vital Signs/Intake and Output Vital Signs (last 24 hours): Temp Pulse Resp BP Pulse Ox 98.8 F 95 H 20 102/56 L 93 L 02/16/17 08:00 02/16/17 09:23 02/16/17 08:00 02/16/17 09:23 02/16/17 08:00 - Medications Medications: Current Medications Acetaminophen (Tylenol 325mg Tab) 650 mg PO Q6 PRN PRN Reason: Pain, moderate (4-7) Last Admin: 02/15/17 20:28 Dose: 650 mg Albuterol/Ipratropium (Duoneb 3 Mg/0.5 Mg (3 Ml) Ud) 3 ml INH RQ4 [facility] Last Admin: 02/16/17 07:20 Dose: 3 ml Amlodipine Besylate (Norvasc) 10 mg PO HS [facility] Last Admin: 02/15/17 22:11 Dose: 10 mg Clonazepam (Klonopin) 0.25 mg PO BID@1730,2230 [facility] Last Admin: 02/15/17 22:15 Dose: 0.25 mg Clonidine HCl (Catapres) 0.1 mg PO BID [facility] Last Admin: 02/16/17 09:23 Dose: Not Given Clopidogrel Bisulfate (Plavix) 75 mg PO DAILY [facility] Last Admin: 02/12/17 14:09 Dose: Not Given Docusate Sodium (Colace) 100 mg PO BID [facility] Last Admin: 02/16/17 09:24 Dose: 100 mg Enalapril Maleate (Vasotec) 20 mg PO BID [facility] Last Admin: 02/16/17 09:26 Dose: Not Given Enoxaparin Sodium (Lovenox) 30 mg SC DAILY [facility] PRN Reason: Protocol Last Admin: 02/12/17 14:01 Dose: Not Given Home Med (Patient's Own Medication) 1 unit PO BID [facility] Last Admin: 02/16/17 09:25 Dose: 1 unit Lactulose (Enulose) 20 gm PO DAILY [facility] Last Admin: 02/16/17 09:24 Dose: 20 gm Pantoprazole Sodium (Protonix Ec Tab) 40 mg PO DAILY [facility] Last Admin: 02/16/17 09:25 Dose: 40 mg Quetiapine Fumarate (Seroquel) 25 mg PO DAILY [facility] Last Admin: 02/16/17 09:25 Dose: 25 mg Quetiapine Fumarate (Seroquel) 50 mg PO HS [facility] Last Admin: 02/15/17 22:11 Dose: 50 mg Rivastigmine (Exelon 9.5 Mg/24 Hr Patch) 1 patch TD HS [facility] Last Admin: 02/15/17 22:23 Dose: 1 patch Simethicone (Mylicon Liq) 40 mg PO QID PRN PRN Reason: Flatulence Last Admin: 02/12/17 17:22 Dose: 40 mg Tiotropium [place] (Spiriva) 18 mcg INH DAILY [facility] Last Admin: 02/16/17 09:25 Dose: 18 mcg Tolvaptan (Samsca) 15 mg PO STAT [facility] Stop: 02/16/17 10:20 - Labs Labs: 02/13/17 06:00 02/16/17 05:45 - Head Exam Head Exam: NORMOCEPHALIC - Respiratory Exam Respiratory Exam: Rhonchi - Cardiovascular Exam Cardiovascular Exam: REGULAR RHYTHM - GI/Abdominal Exam GI & Abdominal Exam: Soft, Normal Bowel Sounds Assessment and Plan - Assessment and Plan (Free Text) Assessment: 89 yo female with UTI and now constipation laxatives as needed abx per PMD
--- NOTE | 2017-02-16 10:20 | CP.PCM.PN ---
Subjective - Date & Time of Evaluation Date of Evaluation: 02/15/17 Time of Evaluation: 12:00 - Subjective Subjective: no overnight events Objective - Vital Signs/Intake and Output Vital Signs (last 24 hours): Temp Pulse Resp BP Pulse Ox 98.8 F 95 H 20 102/56 L 93 L 02/16/17 08:00 02/16/17 09:23 02/16/17 08:00 02/16/17 09:23 02/16/17 08:00 - Medications Medications: Current Medications Acetaminophen (Tylenol 325mg Tab) 650 mg PO Q6 PRN PRN Reason: Pain, moderate (4-7) Last Admin: 02/15/17 20:28 Dose: 650 mg Albuterol/Ipratropium (Duoneb 3 Mg/0.5 Mg (3 Ml) Ud) 3 ml INH RQ4 [facility] Last Admin: 02/16/17 07:20 Dose: 3 ml Amlodipine Besylate (Norvasc) 10 mg PO HS [facility] Last Admin: 02/15/17 22:11 Dose: 10 mg Clonazepam (Klonopin) 0.25 mg PO BID@1730,2230 [facility] Last Admin: 02/15/17 22:15 Dose: 0.25 mg Clonidine HCl (Catapres) 0.1 mg PO BID [facility] Last Admin: 02/16/17 09:23 Dose: Not Given Clopidogrel Bisulfate (Plavix) 75 mg PO DAILY [facility] Last Admin: 02/12/17 14:09 Dose: Not Given Docusate Sodium (Colace) 100 mg PO BID [facility] Last Admin: 02/16/17 09:24 Dose: 100 mg Enalapril Maleate (Vasotec) 20 mg PO BID [facility] Last Admin: 02/16/17 09:26 Dose: Not Given Enoxaparin Sodium (Lovenox) 30 mg SC DAILY [facility] PRN Reason: Protocol Last Admin: 02/12/17 14:01 Dose: Not Given Home Med (Patient's Own Medication) 1 unit PO BID [facility] Last Admin: 02/16/17 09:25 Dose: 1 unit Lactulose (Enulose) 20 gm PO DAILY [facility] Last Admin: 02/16/17 09:24 Dose: 20 gm Pantoprazole Sodium (Protonix Ec Tab) 40 mg PO DAILY [facility] Last Admin: 02/16/17 09:25 Dose: 40 mg Quetiapine Fumarate (Seroquel) 25 mg PO DAILY [facility] Last Admin: 02/16/17 09:25 Dose: 25 mg Quetiapine Fumarate (Seroquel) 50 mg PO HS [facility] Last Admin: 02/15/17 22:11 Dose: 50 mg Rivastigmine (Exelon 9.5 Mg/24 Hr Patch) 1 patch TD HS [facility] Last Admin: 02/15/17 22:23 Dose: 1 patch Simethicone (Mylicon Liq) 40 mg PO QID PRN PRN Reason: Flatulence Last Admin: 02/12/17 17:22 Dose: 40 mg Tiotropium [place] (Spiriva) 18 mcg INH DAILY [facility] Last Admin: 02/16/17 09:25 Dose: 18 mcg - Labs Labs: 02/13/17 06:00 02/16/17 05:45 - Respiratory Exam Respiratory Exam: Rhonchi - Cardiovascular Exam Cardiovascular Exam: REGULAR RHYTHM - GI/Abdominal Exam GI & Abdominal Exam: Soft, Normal Bowel Sounds Assessment and Plan - Assessment and Plan (Free Text) Assessment: 89 yo female with UTI and now constipation laxatives prn abx per PMD
--- NOTE | 2017-02-16 10:23 | CP.PCM.PN ---
Subjective - Date & Time of Evaluation Date of Evaluation: 02/16/17 Time of Evaluation: 10:20 - Subjective Subjective: Patient sitting up in the chair The daughter at the bedside Patient appeared to be communicating No nausea no vomiting Objective - Vital Signs/Intake and Output Vital Signs (last 24 hours): Temp Pulse Resp BP Pulse Ox 98.8 F 95 H 20 102/56 L 93 L 02/16/17 08:00 02/16/17 09:23 02/16/17 08:00 02/16/17 09:23 02/16/17 08:00 - Medications Medications: Current Medications Acetaminophen (Tylenol 325mg Tab) 650 mg PO Q6 PRN PRN Reason: Pain, moderate (4-7) Last Admin: 02/15/17 20:28 Dose: 650 mg Albuterol/Ipratropium (Duoneb 3 Mg/0.5 Mg (3 Ml) Ud) 3 ml INH RQ4 [facility] Last Admin: 02/16/17 07:20 Dose: 3 ml Amlodipine Besylate (Norvasc) 10 mg PO HS [facility] Last Admin: 02/15/17 22:11 Dose: 10 mg Clonazepam (Klonopin) 0.25 mg PO BID@1730,2230 [facility] Last Admin: 02/15/17 22:15 Dose: 0.25 mg Clonidine HCl (Catapres) 0.1 mg PO BID [facility] Last Admin: 02/16/17 09:23 Dose: Not Given Clopidogrel Bisulfate (Plavix) 75 mg PO DAILY [facility] Last Admin: 02/12/17 14:09 Dose: Not Given Docusate Sodium (Colace) 100 mg PO BID [facility] Last Admin: 02/16/17 09:24 Dose: 100 mg Enalapril Maleate (Vasotec) 20 mg PO BID [facility] Last Admin: 02/16/17 09:26 Dose: Not Given Enoxaparin Sodium (Lovenox) 30 mg SC DAILY [facility] PRN Reason: Protocol Last Admin: 02/12/17 14:01 Dose: Not Given Home Med (Patient's Own Medication) 1 unit PO BID [facility] Last Admin: 02/16/17 09:25 Dose: 1 unit Lactulose (Enulose) 20 gm PO DAILY [facility] Last Admin: 02/16/17 09:24 Dose: 20 gm Pantoprazole Sodium (Protonix Ec Tab) 40 mg PO DAILY [facility] Last Admin: 02/16/17 09:25 Dose: 40 mg Quetiapine Fumarate (Seroquel) 25 mg PO DAILY [facility] Last Admin: 02/16/17 09:25 Dose: 25 mg Quetiapine Fumarate (Seroquel) 50 mg PO HS [facility] Last Admin: 02/15/17 22:11 Dose: 50 mg Rivastigmine (Exelon 9.5 Mg/24 Hr Patch) 1 patch TD HS [facility] Last Admin: 02/15/17 22:23 Dose: 1 patch Simethicone (Mylicon Liq) 40 mg PO QID PRN PRN Reason: Flatulence Last Admin: 02/12/17 17:22 Dose: 40 mg Tiotropium [place] (Spiriva) 18 mcg INH DAILY [facility] Last Admin: 02/16/17 09:25 Dose: 18 mcg Tolvaptan (Samsca) 15 mg PO STAT [facility] Stop: 02/16/17 10:20 - Labs Labs: 02/13/17 06:00 02/16/17 05:45 - Constitutional Appears: No Acute Distress - Eye Exam Eye Exam: Normal appearance - ENT Exam ENT Exam: Mucous Membranes Moist - Respiratory Exam Respiratory Exam: absent: Chest Wall Tenderness - Cardiovascular Exam Cardiovascular Exam: absent: JVD, Rubs - Extremities Exam Extremities Exam: absent: Calf Tenderness - Back Exam Back Exam: absent: CVA tenderness (L) - Neurological Exam Neurological Exam: Alert Assessment and Plan (1) Hyponatremia Assessment & Plan: 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 Status: Acute
--- NOTE | 2017-02-16 10:56 | RAD ---
PROCEDURE: Right shoulder HISTORY: FX S/P FRACTURE COMPARISON: 02/06/2017 TECHNIQUE: Limited examination consists of single AP view in external rotation FINDINGS: No evidence of fracture. Severe osteoarthritis. Chronic rotator cuff insufficiency with superior subluxation of humeral head and remodeling of the undersurface of the acromion. Degenerative arthritis of the acromioclavicular articulation. IMPRESSION: No acute fracture. Severe osteoarthritis and rotator cuff insufficiency. Limited examination.
--- NOTE | 2017-02-16 10:59 | RAD ---
PROCEDURE: Radiographs of the right humerus. HISTORY: FX S/P FALL COMPARISON: 02/06/2017 FINDINGS: BONES: Oblique fracture distal humerus. Mild angulation of fracture. Marked improvement in alignment compared to prior examination. SOFT TISSUES: Normal. OTHER FINDINGS: None. IMPRESSION: Oblique fracture distal humeral diaphysis.
--- NOTE | 2017-02-17 00:02 | CON ---
DATE: 02/16/2017 CHIEF COMPLAINT: Right distal humerus fracture. HISTORY OF PRESENT ILLNESS: The patient is an 89-year-old female with multiple medical comorbidities, had a mechanical fall on 02/06/2017. The patient had presented herself into the emergency room with an x-ray that had shown a displaced intraarticular right distal humerus fracture. The patient was discharged home. She was readmitted for hyponatremia. Currently, she is evaluated at bedside with her granddaughter. Patient has a history of vascular dementia and unable to provide a history. According to the granddaughter, she is right-hand dominant, currently not in significant pain, in a posterior splint, and patient is unable to provide any other history. PAST MEDICAL HISTORY: Significant for dementia, stroke, hypertension, COPD, hyponatremia, aortic aneurysm. PAST SURGICAL HISTORY: Hernia repair, foot surgery. ALLERGIES: NO KNOWN DRUG ALLERGY. PHYSICAL EXAMINATION: GENERAL: The patient's right arm is in a posterior splint. The patient is unable to extend her digits and her thumb that may signify injury to the radial nerve. She has a brisk capillary refill. Unable to assess for sensation. Limited range of motion. IMAGING: Repeat x-rays of the patient's elbow showing a displaced intraarticular long spiral distal humerus fracture. ASSESSMENT: An 89-year-old female with mechanical fall with a right distal humerus fracture with a radial nerve injury. PLAN: I had a detailed discussion with the patient's family, explained the complex nature of her injury. I presented them with the options of operative versus nonoperative management due the patient's significant medical conditions and the family is electing to proceed with nonoperative management. I reviewed the risks and benefits of nonoperative management, which include limited range of motion, stiffness, nonunion, malunion, and permanent radial nerve injury. At this time, I am recommending patient to be switched into a Hoskins brace and also to prevent flexion contracture of patient's wrist and fingers, an extension splint for the wrist and finger of the right hand. The patient will remain nonweightbearing. Stable for discharge from orthopedic standpoint and followup in office upon discharge. Nestor Portillo MD
[2017-02-17] MEDS: Albuterol-Ipratrop 3 mg / 0.5 (3 ml) UD INH SCH ×5 (04:52→19:22)
[2017-02-17 06:35] LABS: BLOOD UREA NITROGEN 21 mg/dl (7-17); CALCIUM 9.2 mg/dL (8.4-10.2); CARBON DIOXIDE 23 mmol/L (22-30); CHLORIDE 99 mmol/L (98-107); GFR AFRICAN-AMERICAN > 60; GLUCOSE,RANDOM 116 mg/dL (65-105); POTASSIUM 4.4 MMOL/L (3.6-5.0); SODIUM 129 mmol/l (132-148)
[2017-02-17] MEDS: LIALDA PO SCH ×2 (09:29→17:05)
[2017-02-17] MEDS: Pantoprazole 40 mg EC Tab PO SCH (09:29)
[2017-02-17] MEDS: Tiotropium 18 mcg Cap For Inhalation INH SCH (09:29)
--- NOTE | 2017-02-17 10:17 | CP.PCM.PN ---
Subjective - Date & Time of Evaluation Date of Evaluation: 02/17/17 Time of Evaluation: 09:20 - Subjective Subjective: Have discussed the case with Dr. Lindsey Murry from his point of view following the brace S Na+ upto 129 mEq/L following a dose of Tolvaptan yesterday Plan is to send pt to [facility] if Na+ level is stabilised Discussed with Dr. Loza Objective - Vital Signs/Intake and Output Vital Signs (last 24 hours): Temp Pulse Resp BP Pulse Ox 97.9 F 86 20 130/59 L 95 02/17/17 08:00 02/17/17 09:32 02/17/17 08:00 02/17/17 09:32 02/17/17 08:00 - Medications Medications: Current Medications Acetaminophen (Tylenol 325mg Tab) 650 mg PO Q6 PRN PRN Reason: Pain, moderate (4-7) Last Admin: 02/16/17 22:01 Dose: 650 mg Albuterol/Ipratropium (Duoneb 3 Mg/0.5 Mg (3 Ml) Ud) 3 ml INH RQ4 [facility] Last Admin: 02/17/17 07:41 Dose: 3 ml Amlodipine Besylate (Norvasc) 10 mg PO HS [facility] Last Admin: 02/16/17 21:58 Dose: 10 mg Clonazepam (Klonopin) 0.25 mg PO Q12@1730,2230 [facility] Last Admin: 02/17/17 00:03 Dose: 0.25 mg Clonidine HCl (Catapres) 0.1 mg PO BID [facility] Last Admin: 02/17/17 09:32 Dose: 0.1 mg Clopidogrel Bisulfate (Plavix) 75 mg PO DAILY [facility] Last Admin: 02/12/17 14:09 Dose: Not Given Docusate Sodium (Colace) 100 mg PO BID [facility] Last Admin: 02/17/17 09:28 Dose: 100 mg Enalapril Maleate (Vasotec) 20 mg PO BID [facility] Last Admin: 02/17/17 09:29 Dose: 20 mg Enoxaparin Sodium (Lovenox) 30 mg SC DAILY [facility] PRN Reason: Protocol Last Admin: 02/12/17 14:01 Dose: Not Given Home Med (Patient's Own Medication) 1 unit PO BID [facility] Last Admin: 02/17/17 09:29 Dose: 1 unit Lactulose (Enulose) 20 gm PO DAILY [facility] Last Admin: 02/17/17 09:29 Dose: 20 gm Pantoprazole Sodium (Protonix Ec Tab) 40 mg PO DAILY [facility] Last Admin: 02/17/17 09:29 Dose: 40 mg Quetiapine Fumarate (Seroquel) 25 mg PO DAILY [facility] Last Admin: 02/17/17 09:29 Dose: 25 mg Quetiapine Fumarate (Seroquel) 50 mg PO HS [facility] Last Admin: 02/16/17 21:58 Dose: 50 mg Rivastigmine (Exelon 9.5 Mg/24 Hr Patch) 1 patch TD HS [facility] Last Admin: 02/16/17 22:07 Dose: 1 patch Simethicone (Mylicon Liq) 40 mg PO QID PRN PRN Reason: Flatulence Last Admin: 02/12/17 17:22 Dose: 40 mg Tiotropium [place] (Spiriva) 18 mcg INH DAILY [facility] Last Admin: 02/17/17 09:29 Dose: 18 mcg - Labs Labs: 02/13/17 06:00 02/17/17 05:30
--- NOTE | 2017-02-17 11:14 | CP.PCM.PN ---
Subjective - Date & Time of Evaluation Date of Evaluation: 02/17/17 Time of Evaluation: 11:10 - Subjective Subjective: Patient and bed No significant changes No new event reported Vital signs stable Serum sodium going up 4 milliequivalents daily in the past 2 days after given tolvaptan for past 2 days 15 mg the latest sodium 129 Therefore give 30 mg today As long as serum sodium does not rise more than 12 mEq in the next 24 hours. Physical exam Chest no rales Heart no rubs Abdomen soft Extremity no edema Impression and plan Hyponatremia related to SIADH See above note Objective - Vital Signs/Intake and Output Vital Signs (last 24 hours): Temp Pulse Resp BP Pulse Ox 97.9 F 86 20 130/59 L 95 02/17/17 08:00 02/17/17 09:32 02/17/17 08:00 02/17/17 09:32 02/17/17 08:00 - Medications Medications: Current Medications Acetaminophen (Tylenol 325mg Tab) 650 mg PO Q6 PRN PRN Reason: Pain, moderate (4-7) Last Admin: 02/16/17 22:01 Dose: 650 mg Albuterol/Ipratropium (Duoneb 3 Mg/0.5 Mg (3 Ml) Ud) 3 ml INH RQ4 [facility] Last Admin: 02/17/17 07:41 Dose: 3 ml Amlodipine Besylate (Norvasc) 10 mg PO HS [facility] Last Admin: 02/16/17 21:58 Dose: 10 mg Clonazepam (Klonopin) 0.25 mg PO Q12@1730,2230 [facility] Last Admin: 02/17/17 00:03 Dose: 0.25 mg Clonidine HCl (Catapres) 0.1 mg PO BID [facility] Last Admin: 02/17/17 09:32 Dose: 0.1 mg Clopidogrel Bisulfate (Plavix) 75 mg PO DAILY [facility] Last Admin: 02/12/17 14:09 Dose: Not Given Docusate Sodium (Colace) 100 mg PO BID [facility] Last Admin: 02/17/17 09:28 Dose: 100 mg Enalapril Maleate (Vasotec) 20 mg PO BID [facility] Last Admin: 02/17/17 09:29 Dose: 20 mg Enoxaparin Sodium (Lovenox) 30 mg SC DAILY [facility] PRN Reason: Protocol Last Admin: 02/12/17 14:01 Dose: Not Given Home Med (Patient's Own Medication) 1 unit PO BID [facility] Last Admin: 02/17/17 09:29 Dose: 1 unit Lactulose (Enulose) 20 gm PO DAILY [facility] Last Admin: 02/17/17 09:29 Dose: 20 gm Pantoprazole Sodium (Protonix Ec Tab) 40 mg PO DAILY [facility] Last Admin: 02/17/17 09:29 Dose: 40 mg Quetiapine Fumarate (Seroquel) 25 mg PO DAILY [facility] Last Admin: 02/17/17 09:29 Dose: 25 mg Quetiapine Fumarate (Seroquel) 50 mg PO [facility] Last Admin: 02/16/17 21:58 Dose: 50 mg Rivastigmine (Exelon 9.5 Mg/24 Hr Patch) 1 patch TD [facility] Last Admin: 02/16/17 22:07 Dose: 1 patch Simethicone (Mylicon Liq) 40 mg PO QID PRN PRN Reason: Flatulence Last Admin: 02/12/17 17:22 Dose: 40 mg Tiotropium [place] (Spiriva) 18 mcg INH DAILY [facility] Last Admin: 02/17/17 09:29 Dose: 18 mcg Tolvaptan (Samsca) 30 mg PO ONCE ONE Stop: 02/17/17 11:31 - Labs Labs: 02/13/17 06:00 02/17/17 05:30 Assessment and Plan (1) Hyponatremia Status: Acute
[2017-02-18] MEDS: Albuterol-Ipratrop 3 mg / 0.5 (3 ml) UD INH SCH ×5 (00:15→15:58)
[2017-02-18 06:40] LABS: CREATININE, RANDOM URINE 48.6 mg/dL
[2017-02-18 07:02] LABS: HEMATOCRIT 25.3 % (34.0-47.0); MEAN CELL VOLUME 90.4 fl (81.0-99.0); MEAN CORPUSCULAR HEMOGLOBIN 30.9 pg (27.0-31.0); MEAN CORPUSCULAR HGB CONC 34.1 g/dL (33.0-37.0); RED CELL DISTRIBUTION WIDTH 15.9 % (11.5-14.5); WHITE BLOOD COUNT 8.2 K/uL (4.8-10.8)
[2017-02-18 07:10] LABS: BLOOD UREA NITROGEN 16 mg/dl (7-17); CARBON DIOXIDE 22 mmol/L (22-30); CHLORIDE 102 mmol/L (98-107); GFR AFRICAN-AMERICAN > 60; GLUCOSE,RANDOM 111 mg/dL (65-105); POTASSIUM 4.3 MMOL/L (3.6-5.0); SODIUM 131 mmol/l (132-148)
[2017-02-18] MEDS: Pantoprazole 40 mg EC Tab PO SCH (09:23)
[2017-02-18] MEDS: Tiotropium 18 mcg Cap For Inhalation INH SCH (09:23)
[2017-02-18] MEDS: LIALDA PO SCH (09:23)
--- NOTE | 2017-02-18 11:17 | CP.PCM.PN ---
Subjective - Date & Time of Evaluation Date of Evaluation: 02/18/17 Time of Evaluation: 11:13 - Subjective Subjective: No significant changes reported or any new event overnight Patient appears to be stable The daughter at the bedside and I discussed with her Serum sodium has gone up to 131 Examination basically no significant changes with the chest no rales heart no rubs abdomen soft extremity no edema Impression and plan Hyponatremia related to SIADH with slow response to tolvaptan. Sodium 131 We will maintain fluid restriction should be about 900 to 1000L per 24 hours I will add demeclocycline to monitor electrolyte if she is going home or subacute unit and also liver function test eighth serum sodium to come down significantly again then the patient will need Tolvaptan outpatient Objective - Vital Signs/Intake and Output Vital Signs (last 24 hours): Temp Pulse Resp BP Pulse Ox 97.9 F 83 18 135/60 95 02/18/17 08:00 02/18/17 09:50 02/18/17 08:00 02/18/17 09:50 02/18/17 08:00 - Medications Medications: Current Medications Acetaminophen (Tylenol 325mg Tab) 650 mg PO Q6 PRN PRN Reason: Pain, moderate (4-7) Last Admin: 02/16/17 22:01 Dose: 650 mg Albuterol/Ipratropium (Duoneb 3 Mg/0.5 Mg (3 Ml) Ud) 3 ml INH RQ4 [facility] Last Admin: 02/18/17 07:46 Dose: 3 ml Amlodipine Besylate (Norvasc) 10 mg PO HS [facility] Last Admin: 02/17/17 22:00 Dose: 10 mg Clonazepam (Klonopin) 0.25 mg PO Q12@1730,2230 [facility] Last Admin: 02/17/17 22:28 Dose: 0.25 mg Clonidine HCl (Catapres) 0.1 mg PO BID [facility] Last Admin: 02/18/17 09:50 Dose: 0.1 mg Clopidogrel Bisulfate (Plavix) 75 mg PO DAILY [facility] Last Admin: 02/12/17 14:09 Dose: Not Given Demeclocycline HCl (Declomycin) 300 mg PO BID [facility] Docusate Sodium (Colace) 100 mg PO BID [facility] Last Admin: 02/18/17 09:23 Dose: 100 mg Enalapril Maleate (Vasotec) 20 mg PO BID [facility] Last Admin: 02/18/17 09:24 Dose: 20 mg Enoxaparin Sodium (Lovenox) 30 mg SC DAILY [facility] PRN Reason: Protocol Last Admin: 02/12/17 14:01 Dose: Not Given Home Med (Patient's Own Medication) 1 unit PO BID [facility] Last Admin: 02/18/17 09:23 Dose: 1 unit Lactulose (Enulose) 20 gm PO DAILY [facility] Last Admin: 02/18/17 09:25 Dose: 20 gm Pantoprazole Sodium (Protonix Ec Tab) 40 mg PO DAILY [facility] Last Admin: 02/18/17 09:23 Dose: 40 mg Quetiapine Fumarate (Seroquel) 25 mg PO DAILY [facility] Last Admin: 02/18/17 09:26 Dose: 25 mg Quetiapine Fumarate (Seroquel) 50 mg PO HS [facility] Last Admin: 02/17/17 22:27 Dose: 50 mg Rivastigmine (Exelon 9.5 Mg/24 Hr Patch) 1 patch TD HS [facility] Last Admin: 02/17/17 22:27 Dose: 1 patch Simethicone (Mylicon Liq) 40 mg PO QID PRN PRN Reason: Flatulence Last Admin: 02/12/17 17:22 Dose: 40 mg Tiotropium [place] (Spiriva) 18 mcg INH DAILY [facility] Last Admin: 02/18/17 09:23 Dose: Not Given - Labs Labs: 02/18/17 05:00 02/18/17 05:00 Assessment and Plan (1) Hyponatremia Status: Acute
--- NOTE | 2017-02-18 11:42 | CP.PCM.PN ---
Subjective - Date & Time of Evaluation Date of Evaluation: 02/18/17 Time of Evaluation: 09:30 - Subjective Subjective: Pt extremely drowsy, daughter at bed side Pt on Clonodin, Klonopin and Seroquel Daughter indicates she needs all of these to get thru the night abd stay calm Somnolence as their side effect explained to the daughtr Na+ level upto 131 mEq/L Discussed with Dr. Loza (pt stated on Demeclocycline) Pt to go to [facility] once family settles on which one they want their mother to go to. Objective - Vital Signs/Intake and Output Vital Signs (last 24 hours): Temp Pulse Resp BP Pulse Ox 97.9 F 83 18 135/60 95 02/18/17 08:00 02/18/17 09:50 02/18/17 08:00 02/18/17 09:50 02/18/17 08:00 - Medications Medications: Current Medications Acetaminophen (Tylenol 325mg Tab) 650 mg PO Q6 PRN PRN Reason: Pain, moderate (4-7) Last Admin: 02/16/17 22:01 Dose: 650 mg Albuterol/Ipratropium (Duoneb 3 Mg/0.5 Mg (3 Ml) Ud) 3 ml INH RQ4 [facility] Last Admin: 02/18/17 07:46 Dose: 3 ml Amlodipine Besylate (Norvasc) 10 mg PO HS [facility] Last Admin: 02/17/17 22:00 Dose: 10 mg Clonazepam (Klonopin) 0.25 mg PO Q12@1730,2230 [facility] Last Admin: 02/17/17 22:28 Dose: 0.25 mg Clonidine HCl (Catapres) 0.1 mg PO BID [facility] Last Admin: 02/18/17 09:50 Dose: 0.1 mg Clopidogrel Bisulfate (Plavix) 75 mg PO DAILY [facility] Last Admin: 02/12/17 14:09 Dose: Not Given Demeclocycline HCl (Declomycin) 300 mg PO BID [facility] Docusate Sodium (Colace) 100 mg PO BID [facility] Last Admin: 02/18/17 09:23 Dose: 100 mg Enalapril Maleate (Vasotec) 20 mg PO BID [facility] Last Admin: 02/18/17 09:24 Dose: 20 mg Enoxaparin Sodium (Lovenox) 30 mg SC DAILY [facility] PRN Reason: Protocol Last Admin: 02/12/17 14:01 Dose: Not Given Home Med (Patient's Own Medication) 1 unit PO BID [facility] Last Admin: 02/18/17 09:23 Dose: 1 unit Lactulose (Enulose) 20 gm PO DAILY [facility] Last Admin: 02/18/17 09:25 Dose: 20 gm Pantoprazole Sodium (Protonix Ec Tab) 40 mg PO DAILY [facility] Last Admin: 02/18/17 09:23 Dose: 40 mg Quetiapine Fumarate (Seroquel) 25 mg PO DAILY [facility] Last Admin: 02/18/17 09:26 Dose: 25 mg Quetiapine Fumarate (Seroquel) 50 mg PO HS [facility] Last Admin: 02/17/17 22:27 Dose: 50 mg Rivastigmine (Exelon 9.5 Mg/24 Hr Patch) 1 patch TD [facility] Last Admin: 02/17/17 22:27 Dose: 1 patch Simethicone (Mylicon Liq) 40 mg PO QID PRN PRN Reason: Flatulence Last Admin: 02/12/17 17:22 Dose: 40 mg Tiotropium Scheller (Spiriva) 18 mcg INH DAILY [facility] Last Admin: 02/18/17 09:23 Dose: Not Given - Labs Labs: 02/18/17 05:00 02/18/17 05:00
[2017-02-18 13:12] VITALS: O2SAT 97
[2017-02-18] MEDS ORDERED: Bacitracin 500 Units/gm Oint Foilpak UD TOP ONE (15:00)
[2017-02-18 16:04] VITALS: BP 133/58; PULSE 90; RESP 20; TEMP 97.9
== END 2017-02-18 17:00 | DRG 644 ==
LOC: H.ER 15:30 → H.ERHOLD 17:35 → H.TEL 21:59
PROVIDERS: ADMIT Internal Medicine Cardiovascular Disease; ATTEND Internal Medicine Cardiovascular Disease
DX: E22.2 Syndrome of inappropriate secretion of antidiuretic hormone (principal); N17.9 Acute kidney failure, unspecified; J44.9 Chronic obstructive pulmonary disease, unspecified; F01.50 Vascular dementia, unspecified severity, without behavioral disturbance, psychotic disturbance, mood disturbance, and anxiety; E86.0 Dehydration; N39.0 Urinary tract infection, site not specified; W19.XXXD Unspecified fall, subsequent encounter; E78.00 Pure hypercholesterolemia, unspecified; I10 Essential (primary) hypertension; I25.10 Atherosclerotic heart disease of native coronary artery without angina pectoris; Z86.73 Personal history of transient ischemic attack (TIA), and cerebral infarction without residual deficits; K59.00 Constipation, unspecified; S42.401D Unspecified fracture of lower end of right humerus, subsequent encounter for fracture with routine healing; F41.9 Anxiety disorder, unspecified

== ENCOUNTER 2017-02-25 12:53 | Emergency (ER) | payer MEDICARE ==
[2017-02-25 12:58] VITALS: BP 113/66; PULSE 76; RESP 16; TEMP 98.6; O2SAT 96; BMI 31.1
--- NOTE | 2017-02-25 13:48 | ED PDOC ---
HPI: General Adult Time Seen by Provider: 02/25/17 13:13 Chief Complaint (Nursing): Upper Extremity Problem/Injury History Per: Patient, Family (Moy (son in law)) Additional Complaint(s): Pt. presents with son in law and states this morning he noticed that pt.'s R hand was more swollen than usual. States that pt. sustained a humerus fx on 02/06 and was admitted into the hospital. Reports that at that time pt. was splinted in the ED. Also states that they were advised to f/u with Dr. Portillo but pt. started to develop weakness the day of their appointment and was seen in the ED and admitted for ARF and hyponateremia. Pt. has not c/o pain. Denies new trauma. weakness, fever. Past Medical History Reviewed: Historical Data, Nursing Documentation, Vital Signs Vital Signs: Last Vital Signs Temp 98.6 F 02/25/17 12:55 Pulse 76 02/25/17 12:55 Resp 16 02/25/17 12:55 BP 113/66 02/25/17 12:55 Pulse Ox 96 02/25/17 15:32 - Medical History PMH: Anxiety, Arthritis, CAD, COPD, Dementia, Fractures (pelvic fracture 2008), HTN, Hypercholesterolemia, TIA Denies: HIV, Chronic Kidney Disease - Surgical History Surgical History: Hernia Repair - Family History Family History: States: No Known Family Hx - Home Medications Home Medications: Ambulatory Orders Medication Instructions Recorded Clopidogrel [Plavix] 75 mg PO DAILY #30 tab 02/07/17 Enalapril Maleate [Vasotec] 20 mg PO BID #60 tab 02/07/17 Mesalamine [Lialda] 1.2 mg PO BID #60 tab 02/07/17 QUEtiapine [Seroquel] 25 mg PO DAILY #30 tab 02/07/17 Quetiapine Fumarate [Seroquel] 50 mg PO HS #30 tab 02/07/17 amLODIPine [Norvasc] 10 mg PO HS #30 tab 02/07/17 cloNIDine [Catapres] 0.1 mg PO BID #60 tab 02/07/17 Clonazepam 0.25 mg PO BID 02/11/17 Acetaminophen [Tylenol 325mg tab] 650 mg PO Q6 PRN tab 02/18/17 Lactulose [Enulose] 20 gm PO DAILY 02/18/17 Tiotropium [Spiriva] 18 mcg INH DAILY cap 02/18/17 Albuterol/Ipratropium [Duoneb 3 3 ml INH Q4H PRN 02/25/17 mg/0.5 mg (3 ml) UD] Bacitracin OINT [Bacitracin OINT] 1 appl TOP QSHIFT 02/25/17 Clonazepam [Clonazepam] 0.25 mg PO DAILY PRN 02/25/17 Docusate [Colace] 100 mg PO BID 02/25/17 Enoxaparin [Lovenox] 30 mg SC DAILY 02/25/17 Ferrous Sulfate [Feosol] 325 mg PO DAILY 02/25/17 Pantoprazole Sodium [Protonix] 40 mg PO DAILY 02/25/17 Rivastigmine 9.5 mg/24 hr [Exelon 1 patch TD DAILY 02/25/17 9.5 mg/24 hr Patch] Simethicone [Mylicon Liq] 40 mg PO Q6H PRN 02/25/17 - Allergies Allergies/Adverse Reactions: Allergies Allergy/AdvReac Type Severity Reaction Status Date / Time No Known Allergies Allergy Verified 02/06/17 15:45 Review of Systems ROS Statement: Except As Marked, All Systems Reviewed And Found Negative Physical Exam - Reviewed Nursing Documentation Reviewed: Yes Vital Signs Reviewed: Yes - Physical Exam Appears: Positive for: Well, Non-toxic, No Acute Distress Head Exam: Positive for: ATRAUMATIC, NORMAL INSPECTION, NORMOCEPHALIC Skin: Positive for: Normal Color, Warm. Negative for: Rash Eye Exam: Positive for: EOMI, Normal appearance, PERRL ENT: Positive for: Normal ENT Inspection Neck: Positive for: Normal, Painless ROM Cardiovascular/Chest: Positive for: Regular Rate, Rhythm Respiratory: Positive for: CNT, Normal Breath Sounds Pulses-Radial (L): 2+ Pulses-Radial (R): 2+ Gastrointestinal/Abdominal: Positive for: Normal Exam, Bowel Sounds, Soft. Negative for: Tenderness Back: Positive for: Normal Inspection Extremity: Positive for: Capillary Refill (< 2 seconds of RIGHT upper extremity) , Other (RIGHT UPPER EXTREMITY: diffuse non-circumferential swelling with scattered ecchymosis noted throughout arm) Neurologic/Psych: Positive for: Alert, Oriented - Laboratory Results Result Diagrams: 02/25/17 13:50 02/25/17 13:50 - ECG O2 Sat by Pulse Oximetry: 96 - Progress ED Course And Treament: [address] Portillo 1530 Case d/w Dr. Portillo and x-rays reviewed. States that due to patient's age and medical hx surgery is not favorable. As per Dr. Portillo pt's are can be immobilized with orthoglass splint and Hoskins splint and f/u in his office in 2 weeks. Procedures - Time-Out Type of Procedure: Splint placement Site of Procedure: R upper extremity Correct Patient (with visual ID + MR# on ID Band): Yes Correct Procedure: Yes X-Ray Marked: Yes PA/Tech: Magdamentilla - Splinting Location: Right upper extremity Pre-Made Type: Hoskins Splint Hand-Made Type: orthoglass Splint: posterior elbow Pre-Proc Neuro Vasc Exam: normal Post-Proc Neuro Vasc Exam: normal, unchanged from pre-exam Disposition - Clinical Impression Clinical Impression: Humerus fracture - Patient ED Disposition Is Patient to be Admitted: No - Disposition Disposition: Rehab Facility/Unit Disposition Time: 16:15 Condition: STABLE Additional Instructions: FOLLOW UP WITH DR. PORTILLO IN 2 WEEKS WITHOUT FAIL. Instructions: Arm Fracture in Adults (ED), Splint Care (ED) Forms: [facility] (Welsh)
[2017-02-25 13:57] LABS: BASO % 0.9 % (0.0-2.0); EOS # 0.2 K/uL (0.0-0.7); EOS % 3.4 % (0.0-4.0); HEMATOCRIT 28.7 % (34.0-47.0); LYMPH % 37.7 % (20.0-40.0); MEAN CELL VOLUME 91.9 fl (81.0-99.0); MEAN CORPUSCULAR HEMOGLOBIN 30.1 pg (27.0-31.0); MEAN CORPUSCULAR HGB CONC 32.8 g/dL (33.0-37.0); MEAN PLATELET VOLUME 6.8 fl (7.2-11.7); MONO # 0.6 K/uL (0.0-0.8); MONO % 10.6 % (0.0-10.0); NEUT # 2.6 K/uL (1.8-7.0); NEUT % 47.4 % (50.0-75.0); NRBC % 0.1 % (0.0-0.0); RED CELL DISTRIBUTION WIDTH 16.4 % (11.5-14.5); WHITE BLOOD COUNT 5.4 K/uL (4.8-10.8)
[2017-02-25 14:10] LABS: ALB/GLOB RATIO 1.1 (1.0-2.1); ALKALINE PHOSPHATASE 52 U/L (38-126); ALT/SGPT 28 U/L (9-52); AST/SGOT 30 U/L (14-36); BILIRUBIN,TOTAL 0.6 mg/dl (0.2-1.3); BLOOD UREA NITROGEN 15 mg/dl (7-17); CARBON DIOXIDE 24 mmol/L (22-30); CHLORIDE 100 mmol/L (98-107); GFR AFRICAN-AMERICAN > 60; GLUCOSE,RANDOM 127 mg/dL (65-105); POTASSIUM 4.1 MMOL/L (3.6-5.0); SODIUM 134 mmol/l (132-148); TOTAL PROTEIN 6.6 G/DL (6.3-8.2)
--- NOTE | 2017-02-25 15:08 | US ---
HISTORY: pain . PRIORS: None. FINDINGS: 2-D, color and duplex Doppler analysis of the right upper extremity veins using routine protocol from the jugular veins through the brachial veins. The superficial basilic and cephalic veins were also examined. Venous compressibility: Normal. Flow and augmentation patterns: Normal. Superficial veins : Normal. IMPRESSION: No evidence of deep venous thrombosis.
--- NOTE | 2017-02-25 15:56 | RAD ---
PROCEDURE: Radiographs of the right elbow. HISTORY: pain COMPARISON: No prior. FINDINGS: BONES: Up oblique, spiral fracture distal right humerus. Distraction and angulation of the major fracture fragments identified. This appears to be an non articular fracture. Well corticated osseous excrescence adjacent to the lateral epicondyle left early represents the sequela of prior trauma. JOINTS: Normal. No osteoarthritis. SOFT TISSUES: Soft tissue swelling attests to the acuity of the fracture. JOINT EFFUSION: None. OTHER FINDINGS: None. IMPRESSION: Acute oblique fracture distal right humerus.
--- NOTE | 2017-02-25 16:15 | RAD ---
PROCEDURE: Radiographs of the right humerus. HISTORY: pain COMPARISON: Right humerus radiographs 02/16/2017 FINDINGS: BONES: Diffuse osteopenia appears relatively prominent suggesting advanced osteoporosis. A spiral fracture of the distal right diametaphyseal is again identified with increased varus angulation of the major distal fracture fragment. No definite dislocation. Prominent soft tissue edema is seen surrounding the fracture site. Heterotopic calcification is seen lateral to the lateral epicondyle distal right humerus once again. SOFT TISSUES: Soft tissue edema as discussed above. OTHER FINDINGS: None. IMPRESSION: Spiral fracture distal right diametaphyseal is with increased varus angulation. No dislocation.
== END 2017-02-25 17:50 | disposition short-term general hospital (02) ==
LOC: H.ER 12:53
DX: S42.301A Unspecified fracture of shaft of humerus, right arm, initial encounter for closed fracture (principal)